=== PATIENT | female | born 1950 | race Caucasian/White ===

== ENCOUNTER → 2021-09-28 09:12 | Outpatient (BNVA) | payer MEDICARE, OTHER, SELFPAY | PROVIDERS: Family Provider Family Medicine; PCP Family Medicine; Visit Provider Internal Medicine Cardiovascular Disease | DX: Z95.0 Presence of cardiac pacemaker (principal) | CPT/HCPCS: 93280 ==

== ENCOUNTER → 2021-11-09 10:59 | Outpatient (BNVA) | payer MEDICARE, OTHER, SELFPAY | PROVIDERS: Family Provider Family Medicine; PCP Family Medicine; Visit Provider Internal Medicine Cardiovascular Disease | DX: R00.1 Bradycardia, unspecified (principal); I11.0 Hypertensive heart disease with heart failure; I50.32 Chronic diastolic (congestive) heart failure; Z95.0 Presence of cardiac pacemaker | CPT/HCPCS: 99214 ==

== ENCOUNTER → 2022-02-15 10:04 | Outpatient (BNVA) | payer MEDICARE, OTHER, SELFPAY | PROVIDERS: Family Provider Family Medicine; PCP Family Medicine; Visit Provider Internal Medicine Cardiovascular Disease | DX: Z45.010 Encounter for checking and testing of cardiac pacemaker pulse generator [battery] (principal) | CPT/HCPCS: 93280 ==

== ENCOUNTER → 2022-03-05 13:22 | Outpatient (BNVA) | payer MEDICARE, OTHER, SELFPAY | PROVIDERS: Family Provider Family Medicine; PCP Family Medicine; Visit Provider Internal Medicine | DX: M25.50 Pain in unspecified joint (principal); M79.89 Other specified soft tissue disorders; Z11.59 Encounter for screening for other viral diseases | CPT/HCPCS: 36415; 73120; 73560; 80053; 83516; 85025; 86160; 86162; 86200; 86235; 86255; 86376; 86431; 86704; 86803; 87340; 99204 ==

== ENCOUNTER → 2022-04-15 13:37 | Outpatient (BNVA) | payer MEDICARE, OTHER, SELFPAY | PROVIDERS: Family Provider Family Medicine; PCP Family Medicine; Visit Provider Internal Medicine | DX: M25.461 Effusion, right knee (principal); M79.89 Other specified soft tissue disorders; M25.50 Pain in unspecified joint | CPT/HCPCS: 20610; 99214; J3301 ==

== ENCOUNTER → 2022-05-31 10:49 | Outpatient (BNVA) | payer MEDICARE, OTHER, SELFPAY | PROVIDERS: Family Provider Family Medicine; PCP Family Medicine; Visit Provider Internal Medicine Cardiovascular Disease | DX: Z45.010 Encounter for checking and testing of cardiac pacemaker pulse generator [battery] (principal) | CPT/HCPCS: 93280 ==

== ENCOUNTER → 2022-07-16 13:33 | Outpatient (BNVA) | payer MEDICARE, OTHER, SELFPAY | PROVIDERS: Family Provider Family Medicine; PCP Family Medicine; Visit Provider Internal Medicine | DX: M25.50 Pain in unspecified joint (principal); M79.89 Other specified soft tissue disorders; I10 Essential (primary) hypertension | CPT/HCPCS: 36415; 80053; 84443; 85025; 85651; 86140; 99213 ==

== ENCOUNTER → 2022-09-13 08:41 | Outpatient (BNVA) | payer MEDICARE, OTHER, SELFPAY | PROVIDERS: Family Provider Family Medicine; PCP Family Medicine; Visit Provider Student in an Organized Health Care Education/Training Program | DX: M67.441 Ganglion, right hand (principal) | CPT/HCPCS: 99204 ==

== ENCOUNTER → 2022-11-21 14:23 | Outpatient (BNVA) | payer MEDICARE, OTHER, SELFPAY | PROVIDERS: Family Provider Family Medicine; PCP Family Medicine; Visit Provider Internal Medicine | DX: M25.50 Pain in unspecified joint (principal); E03.9 Hypothyroidism, unspecified; M79.89 Other specified soft tissue disorders | CPT/HCPCS: 99214 ==

== ENCOUNTER → 2023-01-01 14:49 | Outpatient (BNVA) | payer MEDICARE, OTHER, SELFPAY | PROVIDERS: Family Provider Family Medicine; PCP Family Medicine; Referring Provider Internal Medicine; Visit Provider Internal Medicine | DX: I10 Essential (primary) hypertension (principal); E03.9 Hypothyroidism, unspecified; L74.519 Primary focal hyperhidrosis, unspecified; R63.5 Abnormal weight gain; Z79.890 Hormone replacement therapy; Z68.35 Body mass index [BMI] 35.0-35.9, adult | CPT/HCPCS: 99204 ==

== ENCOUNTER 2023-01-10 12:11 | Outpatient (CLI) | payer MEDICARE, OTHER, SELFPAY ==
[2023-01-10 12:59] LABS: Free T4 Free Thyroxine 1.75 ng/dL (0.82-1.77); Thyroid Stimulating Hormone 1.73 uIU/mL (0.27-4.20)
== END 2023-01-10 12:12 | disposition home or self-care (01) ==
LOC: LAB 12:14
PROVIDERS: PCP Family Medicine; Visit Provider Internal Medicine
DX: I10 Essential (primary) hypertension (principal); E03.9 Hypothyroidism, unspecified; L74.519 Primary focal hyperhidrosis, unspecified; R63.5 Abnormal weight gain; R00.1 Bradycardia, unspecified; Z95.0 Presence of cardiac pacemaker; Z79.01 Long term (current) use of anticoagulants
CPT/HCPCS: 36415; 84439; 84443; 99214

== ENCOUNTER → 2023-06-10 08:52 | Outpatient (BNVA) | payer MEDICARE, OTHER, SELFPAY | PROVIDERS: PCP Family Medicine; Visit Provider Nurse Practitioner Family | DX: L57.8 Other skin changes due to chronic exposure to nonionizing radiation (principal); L74.519 Primary focal hyperhidrosis, unspecified; D22.5 Melanocytic nevi of trunk; L91.8 Other hypertrophic disorders of the skin | CPT/HCPCS: 99204 ==

== ENCOUNTER → 2023-07-11 10:08 | Outpatient (BNVA) | payer MEDICARE, OTHER, SELFPAY | PROVIDERS: PCP Family Medicine; Visit Provider Nurse Practitioner Family | DX: L74.519 Primary focal hyperhidrosis, unspecified (principal); L57.8 Other skin changes due to chronic exposure to nonionizing radiation; L81.4 Other melanin hyperpigmentation; L57.0 Actinic keratosis | CPT/HCPCS: 17000; 99214 ==

== ENCOUNTER → 2023-11-25 12:16 | Outpatient (BNVA) | payer MEDICARE, OTHER, SELFPAY | PROVIDERS: PCP Family Medicine; Visit Provider Internal Medicine | DX: I11.0 Hypertensive heart disease with heart failure (principal); I50.32 Chronic diastolic (congestive) heart failure; Z95.0 Presence of cardiac pacemaker; Z87.891 Personal history of nicotine dependence | CPT/HCPCS: 99214 ==

== ENCOUNTER 2023-12-11 08:50 | Outpatient (CLI) | payer MEDICARE, OTHER, SELFPAY ==
--- NOTE | 2023-12-11 09:30 | USCV_ITS ---
Salena Kelly Age: 73 Gender: F : 1950 Exam Date: 12/11/2023 09:05 Ordering Phys: Michael Benitez M.D ([email or web address]) Technologist: ALEC Exam Location[place] [facility] [place] Indication: SHORTNESS OF BREATH BP: 138 / 82 HR: 68 Rhythm: Sinus Technical Quality: Adequate MEASUREMENTS (Male / Female) Normal Values 2D ECHO LVOT Diameter 2.0 cm LV Ejection Fraction MOD 2C 42.0 % LV Ejection Fraction 2C AL 42.4 % LA Diameter 3.3 cm RA Systolic Volume 4C AL 22.9 ml RA Systolic Volume 4C MOD 23.5 ml LA Sys Volume AL 26.4 cm cubed LA Sys Volume Index AL 12.3 cm cubed/m squared Aorta at Sinotubular Diameter 2.5 cm IVC Diameter 1.8 cm M-MODE LA Ao Ratio MM 1.4 AV Cusp Separation MM 1.4 cm DOPPLER AV Peak Velocity 145.7 cm/s LVOT Peak Velocity 84.0 cm/s AV Area Cont Eq vti 1.8 cm squared AV Area Cont Eq pk 1.7 cm squared MV Peak Velocity 115.0 cm/s MV Area PHT 4.2 cm squared Mitral E to A Ratio 0.7 TR Peak Velocity 221.0 cm/s TR Peak Gradient 19.5 mmHg TR Mean Velocity 163.0 cm/s TR Mean Gradient 11.8 mmHg TR Velocity Time Integral 79.5 cm TV Peak E Velocity 57.0 cm/s Right Atrial Pressure 3.0 mmHg Pulmonary Artery Systolic Pressu 22.5 mmHg RV Ejection Time 0.3 s FINDINGS Left Ventricle Left ventricle is normal in size. LV systolic function is moderately reduced with EF of 35-40%. Moderate global hypokinesis. Grade 1 diastolic dysfunction. Right Ventricle Normal in size and function. Pacemaker lead is seen Right Atrium Normal in size. Pacemaker lead is seen Left Atrium Normal in size Mitral Valve Structurally normal mitral valve. Mild mitral regurgitation. Aortic Valve Grossly normal. No significant stenosis or regurgitation. Tricuspid Valve Insufficient TR jet to calculate RVSP Pulmonic Valve Trace pulmonic regurgitation. Pericardium Normal Aorta Normal in size IVC Appears to be normal CONCLUSIONS LV systolic function is moderately reduced with EF of 35-40% Grade 1 diastolic dysfunction Mild mitral regurgitation Trace pulmonic regurgitation Compared to prior echocardiogram from 2019, LV systolic function has decreased and is moderately reduced now. Michael Benitez MD (Electronically Signed) Final Date: 23 December 2023 12:22 S
== END 2023-12-11 08:51 | disposition home or self-care (01) ==
LOC: RAD 08:51
PROVIDERS: PCP Family Medicine; Visit Provider Internal Medicine
DX: R07.9 Chest pain, unspecified (principal); R06.02 Shortness of breath; I50.30 Unspecified diastolic (congestive) heart failure
CPT/HCPCS: 93306

== ENCOUNTER 2024-01-05 21:13 | Observation (INO) | payer MEDICARE, OTHER, SELFPAY ==
--- NOTE | 2024-01-05 21:15 | ECG_ITS ---
[facility] Test Date: 2024-01-05 Pat Name: Salena Kelly Department: Room: Gender: Female Twister Doffer: : 1950 Requested By: Goran Diamond Order Number: [id number] Adama MD: Marcy Dunham M.D. Measurements Intervals [place] Rate: 75 P: 19 [place]: 175 QRS: -63 QRSD: 178 T: 84 QT: 411 QTc: 459 Interpretive Statements ELECTRONIC ATRIAL PACEMAKER ELECTRONIC VENTRICULAR PACEMAKER ABNORMAL RHYTHM ECG Compared to ECG 04/20/2019 17:20:15 Sinus rhythm no longer present Right bundle-branch block no longer present Left posterior fascicular block no longer present Electronically Signed On 01-06-2024 23:42:48 CDT by Marcy Dunham M.D. [email or web address] woman[facility] [email or web address].i-nexus/store/OM/[id number]
--- NOTE | 2024-01-05 21:15 | XRR_ITS ---
PROCEDURE INFORMATION: Exam: XR Chest Exam date and time: 01/05/2024 9:30 PM Age: 73 years old Clinical indication: Pain; Other: Palpitations; Chest pressure; Prior surgery; Surgery date: 6+ months; Surgery type: Pacer; Additional info: Cp TECHNIQUE: Imaging protocol: Radiologic exam of the chest. Views: 1 view. COMPARISON: CR XR chest 1V [id number] 04/23/2019 4:11 AM FINDINGS: Tubes, catheters and devices: Cardiac pacer leads are satisfactory locations. Lungs: Unremarkable. No consolidation. Pleural spaces: Unremarkable. No pleural effusion. No pneumothorax. Heart/Mediastinum: Unremarkable. No cardiomegaly. Bones/joints: Unremarkable. XR/XR chest 1V portable [id number] IMPRESSION: No acute findings.
[2024-01-05 21:20] VITALS: BP 164/84; PULSE 79; RESP 18; TEMP 36.6; O2SAT 98
[2024-01-05 21:45] VITALS: BP 156/82; PULSE 77; RESP 21; O2SAT 97
--- NOTE | 2024-01-05 21:45 | PC.NURSE ---
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
[2024-01-05 22:00] VITALS: BP 152/82; PULSE 70; RESP 27; O2SAT 96
[2024-01-05 22:10] LABS: Basophils # 0.1 10^3/uL (0.0-0.1); Basophils % 0.9 %; Eosinophils # 0.2 10^3/uL (0.0-0.8); Eosinophils % 2.3 %; Hematocrit 40.6 % (36-47); Lymphocytes # 2.7 10^3/uL (0.8-4.8); Lymphocytes % 34.1 %; Mean Corpuscular HGB Conc 33.3 g/dL (30-55); Mean Corpuscular Hemoglobin 31.2 pg (27-33); Mean Corpuscular Volume 93.8 fl (85-98); Mean Platelet Volume 9.7 fL (7.4-10.4); Monocytes # 0.7 10^3/uL (0.2-0.9); Monocytes % 9.5 %; Neutrophils # 4.13 10^3/uL (1.8-7.7); Neutrophils % 53.1 %; Nucleated Red Blood Cells % 0 %; Platelet Count 290 10^3/cmm (157-399); Red Blood Count 4.33 10^6/uL (3.85-5.65); Red Cell Distribution Width 13.3 % (12.1-15.1); White Blood Count 7.79 10^3/uL (3.29-11.43)
--- NOTE | 2024-01-05 22:11 | ED_ITS ---
Documented by User: Goran Diamond MD 01/06/24 11:06 HPI - Arrhythmia/Palpitations 2 General: Chief Complaint: ER Hold Stated Complaint: Heart palpataions Time Seen by Provider: 01/05/24 21:43 Source: patient Mode of arrival: ambulatory Limitations: no limitations History of Present Illness: 73-year-old female states today at 830 s he started having some palpitations and checked her heart rate and states it was 125. She states that she has had some very mild dyspnea that is since resolved. Denies any chest pain she denies any fever pulse ox here is normal. Patient here appears to be functioning well. States her symptoms of symptoms resolved. Associated symptoms: Deny nausea or vomiting Review of Systems 2 Const: Denies: fever(s), chills, body aches or change in appetite Eyes: Denies: eye discomfort ENMT: Denies: throat pain or dental pain Card: Reports: palpitations; Denies: chest pain Resp: Denies: non-productive cough GI: Denies: abdominal pain, nausea, vomiting or diarrhea Musc: Denies: neck pain or back pain Skin/Breast: Denies: rash Neuro: Denies: headache(s) PFSH ED 2 PFSH: Medical History Hypothyroidism Diastolic heart failure Essential hypertension Pacemaker Social History Smoking and tobacco/nicotine status: former use of tobacco/nicotine Second hand smoke exposure: No Alcohol intake: never Substance/Drug Use: never Physical Exam 2 Const: COMMON NORMALS: no acute distress, patient oriented x3 and healthy appearing HENMT: COMMON NORMALS: normocephalic and atraumatic HEAD & SCALP: n ormocephalic and atraumatic Neck/C-Spine: COMMON NORMALS: full ROM and supple Chest: COMMONS NORMALS: normal inspection of the chest Resp: COMMON NORMALS: normal respiratory effort, No retractions, No use of accessory muscles and clear to auscultation bilaterally AUSCULTATION: clear to auscultation bilaterally Cardio: COMMON NORMALS: regular rate, regular rhythm and No murmurs present (Cardio) RATE: regular rate RHYTHM: regular rhythm Extremity: COMMON NORMALS: normal to inspection and full ROM Neuro: COMMON NORMALS: patient oriented x3, moves all extremities and no focal motor deficits Psych: COMMON NORMALS: mental status grossly normal, Normal thought process present and cooperative THOUGHT PROCESS: Normal thought process present Skin: COMMON NORMALS: no rashes or lesions noted and no wounds GENERAL SKIN EXAM: no rashes or lesions noted Course 2 Vital Signs: Vital signs: Vital Signs Temperature 97.8 F 01/06/24 09:30 Pulse Rate 68 01/06/24 09:30 Respiratory Rate 17 01/06/24 09:30 Blood Pressure 139/76 01/06/24 09:30 Pulse Oximetry 95 01/06/24 09:30 Oxygen Delivery Me thod Room Air 01/06/24 09:30 MDM - Arrhythmia/Palpitations Medical Records I reviewed the patient's medical records. Lab Data I reviewed the patient's lab results. 01/05/24 22:04 01/05/24 22:04 Radiology Impressions Chest X-Ray 01/05/24 21:15 IMPRESSION: No acute findings. Laboratory Results WBC 7.79 10^3/uL (3.29-11.43) 01/05/24 22:04 RBC 4.33 10^6/uL (3.85-5.65) 01/05/24 22:04 Hgb 13.50 g/dL (11.27-16.99) 01/05/24 22:04 Hct 40.6 % (36-47) 01/05/24 22:04 MCV 93.8 fl (85-98) 01/05/24 22:04 MCH 31.2 pg (27-33) 01/05/24 22:04 MCHC 33.3 g/dL (30-55) 01/05/24 22:04 RDW 13.3 % (12.1-15.1) 01/05/24 22:04 Plt Count 290 10^3/cmm (157-399) 01/05/24 22:04 MPV 9.7 fL (7.4-10.4) 01/05/24 22:04 Neut % (Auto) 53.1 % 01/05/24 22:04 Lymph % (Auto) 34.1 % 01/05/24 22:04 [place] % (Auto) 9.5 % 01/05/24 22:04 Eos % (Auto) 2.3 % 01/05/24 22:04 Baso % (Auto) 0.9 % 01/05/24 22:04 Neut # (Auto) 4.13 10^3/uL (1.8-7.7) 01/05/24 22:04 Lymph # (Auto) 2.7 10^3/uL (0.8-4.8) 01/05/24 22:04 [place] # (Auto) 0.7 10^3/uL (0.2-0.9) 01/05/24 22:04 Eos # (Auto) 0.2 10^3/uL (0.0-0.8) 01/05/24 22:04 Baso # (Auto) 0.1 10^3/uL (0.0-0.1) 01/05/24 22:04 Nucleated RBC % (auto) 0 % 01/05/24 22:04 Nucleated RBCs # 0.0 /100WBC 01/05/24 22:04 D-Dimer 0.57 ug/mLFEU (0-0.59) 01/05/24 22:05 Sodium 141 mmol/L (136-145) 01/05/24 22:04 Potassium 3.9 mmol/L (3.5-5.1) 01/05/24 22:04 Chloride 103 mmol/L (98-107) 01/05/24 22:04 Carbon Dioxide 25 mmol/L (22-29) 01/05/24 22:04 Anion Gap 16.9 (5-19) 01/05/24 22:04 BUN 9 mg/dL (8-23) 01/05/24 22:04 Creatinine 0.8 mg/dL (0.5-0.9) 01/05/24 22:04 GFR Calculation Not Reportable 01/05/24 22:04 Glucose 112 mg/dL (65-115) 01/05/24 22:04 Estimat Average Glucose 123 01/05/24 22:05 Hemoglobin A1c 5.9 % (4.0-6.0) 01/05/24 22:05 Calculated Osmolality 291 mOsm/kg (285-295) 01/05/24 22:04 Calcium 10.1 mg/dL (8.5-10.5) 01/05/24 22:04 Total Bilirubin 0.2 mg/dL (0.15-1.2) 01/05/24 22:04 AST 18 U/L (0-32) 01/05/24 22:04 ALT 15 U/L (0-33) 01/05/24 22:04 Alkaline Phosphatase 102 U/L (35-105) 01/05/24 22:04 Troponin T Baseline 14 ng/L (0-10) H 01/05/24 22:04 Troponin T 120 Minute 25.44 ng/L (0-10) H 01/06/24 00:36 Delta Troponin T 11.44 ABS# (0-10) H* 01/06/24 00:36 NT-Pro-B Natriuret Pep 346 pg/mL (0-125) H 01/05/24 22:04 Total Protein 7.0 g/dL (6.6-8.7) 01/05/24 22:04 Albumin 4.4 g/dL (3.5-5.2) 01/05/24 22:04 Globulin 2.6 g/dL (1.3-4.6) 01/05/24 22:04 Lipase 43 U/L (13-60) 01/05/24 22:04 XR interpretation done by ED provider, pending radiology final review ED provider radiology interpretation(s): cxr no acute abnormalities EKG Data EKG 1: I personally reviewed and interpreted this EKG as follows: EKG interpretation date: 01/05/24 EKG interpretation time: 21:15 Interpretation: pace hr [address] or t wave abnormalities qrs 178 qtc 439 Other EKG comments: Chest X-Ray 01/05/24 21:15 IMPRESSION: No acute findings. Discharge Plan Discharge Patient Disposition: Placed in Observation Admit Provider: Ana Flores Clinical Impression: Palpitations, Elevated troponin Discharge Diet: Advance as tolerated Discharge Activity: Resume usual activity Coding Level of Care Code ED Housekeeping Lead for Chg Fwd Documented by User: Drake Price DO 01/06/24 01:21 HPI - Arrhythmia/Palpitations 2 General: Chief Complaint: ER Hold Stated Complaint: Heart palpataions Time Seen by Provider: 01/05/24 21:43 [facility]SH: Medical History Hypothyroidism Diastolic heart failure Essential hypertension Pacemaker Social History Smoking and tobacco/nicotine status: former use of tobacco/nicotine Second hand smoke exposure: No Alcohol intake: never Substance/Drug Use: never Course 2 Vital Signs: Vital signs: Vital Signs Temperature 97.8 F 01/06/24 09:30 Pulse Rate 68 01/06/24 09:30 Respiratory Rate 17 01/06/24 09:30 Blood Pressure 139/76 01/06/24 09:30 Pulse Oximetry 95 01/06/24 09:30 Oxygen Delivery Me thod Room Air 01/06/24 09:30 MDM - Arrhythmia/Palpitations Medical Decision Making Care was transferred over to myself at shift change, we are waiting for the 2- hour troponin to come back in the D-dimer. D-dimer is negative, 2-hour troponin slightly positive with a delta of 11.5, upon talking to the patient she sees Dr. Mckeon and she had a echo that was abnormal and they wanted to do a angiogram on her coming up in a week or 2 patient is still chest pain-free with mild shortness of breath. Dr. Dr. Flores who agreed to place patient in observation for chest pain workup. Lab Data 01/05/24 22:04 01/05/24 22:04 Radiology Impressions Chest X-Ray 01/05/24 21:15 IMPRESSION: No acute findings. Laboratory Results WBC 7.79 10^3/uL (3.29-11.43) 01/05/24 22:04 RBC 4.33 10^6/uL (3.85-5.65) 01/05/24 22:04 Hgb 13.50 g/dL (11.27-16.99) 01/05/24 22:04 Hct 40.6 % (36-47) 01/05/24 22:04 MCV 93.8 fl (85-98) 01/05/24 22:04 MCH 31.2 pg (27-33) 01/05/24 22:04 MCHC 33.3 g/dL (30-55) 01/05/24 22:04 RDW 13.3 % (12.1-15.1) 01/05/24 22:04 Plt Count 290 10^3/cmm (157-399) 01/05/24 22:04 MPV 9.7 fL (7.4-10.4) 01/05/24 22:04 Neut % (Auto) 53.1 % 01/05/24 22:04 Lymph % (Auto) 34.1 % 01/05/24 22:04 [place] % (Auto) 9.5 % 01/05/24 22:04 Eos % (Auto) 2.3 % 01/05/24 22:04 Baso % (Auto) 0.9 % 01/05/24 22:04 Neut # (Auto) 4.13 10^3/uL (1.8-7.7) 01/05/24 22:04 Lymph # (Auto) 2.7 10^3/uL (0.8-4.8) 01/05/24 22:04 [place] # (Auto) 0.7 10^3/uL (0.2-0.9) 01/05/24 22:04 Eos # (Auto) 0.2 10^3/uL (0.0-0.8) 01/05/24 22:04 Baso # (Auto) 0.1 10^3/uL (0.0-0.1) 01/05/24 22:04 Nucleated RBC % (auto) 0 % 01/05/24 22:04 Nucleated RBCs # 0.0 /100WBC 01/05/24 22:04 D-Dimer 0.57 ug/mLFEU (0-0.59) 01/05/24 22:05 Sodium 141 mmol/L (136-145) 01/05/24 22:04 Potassium 3.9 mmol/L (3.5-5.1) 01/05/24 22:04 Chloride 103 mmol/L (98-107) 01/05/24 22:04 Carbon Dioxide 25 mmol/L (22-29) 01/05/24 22:04 Anion Gap 16.9 (5-19) 01/05/24 22:04 BUN 9 mg/dL (8-23) 01/05/24 22:04 Creatinine 0.8 mg/dL (0.5-0.9) 01/05/24 22:04 GFR Calculation Not Reportable 01/05/24 22:04 Glucose 112 mg/dL (65-115) 01/05/24 22:04 Estimat Average Glucose 123 01/05/24 22:05 Hemoglobin A1c 5.9 % (4.0-6.0) 01/05/24 22:05 Calculated Osmolality 291 mOsm/kg (285-295) 01/05/24 22:04 Calcium 10.1 mg/dL (8.5-10.5) 01/05/24 22:04 Total Bilirubin 0.2 mg/dL (0.15-1.2) 01/05/24 22:04 AST 18 U/L (0-32) 01/05/24 22:04 ALT 15 U/L (0-33) 01/05/24 22:04 Alkaline Phosphatase 102 U/L (35-105) 01/05/24 22:04 Troponin T Baseline 14 ng/L (0-10) H 01/05/24 22:04 Troponin T 120 Minute 25.44 ng/L (0-10) H 01/06/24 00:36 Delta Troponin T 11.44 ABS# (0-10) H* 01/06/24 00:36 NT-Pro-B Natriuret Pep 346 pg/mL (0-125) H 01/05/24 22:04 Total Protein 7.0 g/dL (6.6-8.7) 01/05/24 22:04 Albumin 4.4 g/dL (3.5-5.2) 01/05/24 22:04 Globulin 2.6 g/dL (1.3-4.6) 01/05/24 22:04 Lipase 43 U/L (13-60) 01/05/24 22:04 EKG Data EKG 1: Other EKG comments: Chest X-Ray 01/05/24 21:15 IMPRESSION: No acute findings. Discharge Plan Discharge Patient Disposition: Placed in Observation Admit Provider: Ana Flores Clinical Impression: Palpitations, Elevated troponin Discharge Diet: Advance as tolerated Discharge Activity: Resume usual activity Coding Level of Care Code ED Housekeeping Lead for g Liseth
[2024-01-05 22:30] VITALS: BP 136/89; PULSE 109; RESP 25; O2SAT 96
[2024-01-05 22:33] LABS: Troponin(5th) Baseline 14 ng/L (0-10)
[2024-01-05 22:42] LABS: Alanine Aminotransferase 15 U/L (0-33); Albumin Level 4.4 g/dL (3.5-5.2); Alkaline Phosphatase 102 U/L (35-105); Anion Gap 16.9 (5-19); Aspartate Amino Transferase 18 U/L (0-32); Blood Urea Nitrogen 9 mg/dL (8-23); Calcium 10.1 mg/dL (8.5-10.5); Carbon Dioxide 25 mmol/L (22-29); Chloride 103 mmol/L (98-107); Globulin 2.6 g/dL (1.3-4.6); Glucose 112 mg/dL (65-115); Lipase 43 U/L (13-60); NT Pro B Type Natriuretic Pept 346 pg/mL (0-125); Osmolality Calculated 291 mOsm/kg (285-295); Potassium 3.9 mmol/L (3.5-5.1); Sodium 141 mmol/L (136-145); Total Bilirubin 0.2 mg/dL (0.15-1.2)
[2024-01-05 23:00] VITALS: BP 151/103; PULSE 102; RESP 20; O2SAT 98
[2024-01-05 23:01] LABS: D Dimer 0.57 ug/mLFEU (0-0.59)
--- NOTE | 2024-01-05 23:15 | ECG_ITS ---
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 Measurements Intervals [place] Rate: 73 P: 50 [place]: 200 QRS: -66 QRSD: 180 T: 75 QT: 440 QTc: 487 Interpretive Statements Mostly a sensed V-paced rhythm ELECTRONIC VENTRICULAR PACEMAKER ABNORMAL RHYTHM ECG Compared to ECG 01/05/2024 21:15:00 Atrial-paced complex(es) or rhythm no longer present Electronically Signed On 01-06-2024 23:55:24 CDT by Marcy Dunham M.D. [email or web address] [email or web address] centerStoriemercy health [facility].[employer]/store/OM/[id number]
[2024-01-05] MEDS: labetalol 5 mg/mL SDV 20mL 10 MG IVP (23:23)
[2024-01-05 23:30] VITALS: BP 133/82; PULSE 80; RESP 26; O2SAT 96
[2024-01-06] VITALS (18 sets, daily range): BP systolic 113–157; BP diastolic 64–98; PULSE 63–79; RESP 16–32; TEMP 36.5–36.6; O2SAT 95–98; BMI 35.5
--- NOTE | 2024-01-06 | ECG_ITS ---
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 Interpretive Statements NAME OF STUDY: LEXISCAN SESTAMIBI STRESS TEST INDICATION: Angina, PROCEDURE: At the baseline, the EKG revealed a sensed V paced rhythm. The baseline heart was 78 bpm with a blood pressue of 144/75 mm of Hg Lexiscan was infused over a period of 20 seconds. A total of 0.4 milligrams of Lexiscan was infused. The stress phase was continued for a total of 5 minutes. Heart rate at the end of the stress phase was 84 bpm with a blood pressure 140/83 mm of Hg. The EKG at the peak infusion revealed no significant changes. Sestamibi was injected 20 seconds after the Lexiscan infusion. Heart rate at the end of the recovery phase was 75 bpm with a blood pressure of 144/82 mm of Hg. CONCLUSION: 1. The EKG response to Lexiscan infusion is uninterpretable due to baseline changes 2. No LexiScan induced chest pain or cardiac arrhythmia 3. Normal blood pressure and heart rate response 4. Sestamibi/sestamibi perfusion scan pending; see separate report. Electronically Signed On 01-10-2024 14:27:54 CDT by Marcy Dunham M.D. [id number]
[2024-01-06 01:03] LABS: Troponin 5 2HR 25.44 ng/L (0-10)
[2024-01-06 01:04] LABS: Troponin 5 2HR Delta 11.44 ABS# (0-10)
--- NOTE | 2024-01-06 02:32 | PM.HP ---
Providers/Chief Complaint Admitting Physician: Ana Flores MD Primary Care Provider: Nitish Amador MD Chief Complaint: Heart palpataions History of Present Illness Salena Kelly is a 73 year old female with a past medical history of having a pacemaker for symptomatic sinus bradycardia, who has been experiencing increasing shortness of breath the past several weeks. Patient states she has been feeling short of breath for about 3 weeks now. The exertional when she attempts to walk. She has noticed this with shorter distances recently. Recently followed up with cardiology as an outpatient was recommended to undergo an echocardiogram which showed LV systolic function is moderately reduced with EF of 35-40%. Moderate global hypokinesis. Grade 1 diastolic dysfunction. She presented to the ER today with chief complaints of chest discomfort which is located in the middle of the chest. Also had palpitations and subjective dyspnea at the time. Reports that her heart rate at home was at 125/min. She was at rest at that time. Upon presenting to the ER heart rate had improved to 75/min. EKG shows paced rhythm. She was found to have elevated troponin in the 20s range with a positive delta at 2 hours and recommended to stay for further diagnostics. Review of Systems General: Reports: 10 or more systems reviewed and unremarkable except in HPI and below Const: Denies: fever(s), chills or body aches Eyes: Denies: change in vision, blurry vision or photophobia ENMT: Reports: hoarseness; Denies: throat pain, enlarged tonsils, odynophagia or nasal congestion Card: Denies: chest pain, palpitations, irregular heart rhythm, edema, swelling of feet/ankles, lightheadedness, pre-syncope, dyspnea on exertion or orthopnea Resp: Denies: dyspnea, productive cough, non-productive cough, wheezing, stridor, pain on inspiration, change in phlegm color, hemoptysis or chest congestion GI: Denies: abdominal pain, nausea, vomiting, hematemesis, coffee ground emesis, dysphagia, heartburn, diarrhea, constipation, GI cramping, change in stool character, hematochezia or melena : Denies: flank pain, difficulty voiding, dysuria, urinary frequency, urinary urgency, urinary hesitancy or hematuria Musc: Denies: neck pain, back pain, extremity pain, joint swelling, joint warmth or deformity Neuro: Denies: headache(s), numbness in extremities, weakness in extremities, sensory changes, difficulty walking, frequent falls, dizziness, vertigo, behavioral changes, Slurred speech present or seizure-like activity Psych: Denies: anxiety, depression, suicidal ideation or homicidal ideation Endo: Denies: polyuria, polydipsia, tired all the time, cold intolerance or hot flashes [place]/Lymph: Denies: easy bruising or easy bleeding Medications/Allergies Home Medications Medication Instructions Recorded Confirmed Last Taken Type cholecalciferol (vitamin D3) 75 75 mcg PO DAILY 05/12/20 11/25/23 Unknown History mcg (3,000 unit) tablet cyanocobalamin (vitamin B-12) 500 500 mcg PO DAILY 05/12/20 11/25/23 Unknown History mcg tablet (B-12 DOTS) zinc acetate 50 mg (zinc) capsule 50 mg PO DAILY 05/12/20 11/25/23 Unknown History (Galzin) ascorbic acid (vitamin C) 500 mg 500 mg PO DAILY 02/09/21 11/25/23 Unknown History tablet coenzyme Q10 50 mg capsule (Co 50 mg PO DAILY 02/09/21 11/25/23 Unknown History Q-10) levothyroxine 125 mcg capsule 112 mcg PO DAILY 02/09/21 11/25/23 Unknown History multivitamin 1 tab PO DAILY 02/09/21 11/25/23 Unknown History meloxicam 15 mg tablet 15 mg PO DAILY #30 tabs 11/21/22 11/25/23 Unknown Rx Allergies Allergy/AdvReac Type Severity Reaction Status Date / Time No Known Allergies Allergy Verified 01/05/24 21:27 PFSH Acute PFSH: Medical History Hypothyroidism Diastolic heart failure Essential hypertension Pacemaker Social History Smoking and tobacco/nicotine status: former use of tobacco/nicotine Second hand smoke exposure: No Alcohol intake: never Substance/Drug Use: never Vitals/I&O/Wt Last Vital Signs Temp 97.9 F 01/05/24 21:20 Pulse 80 01/05/24 23:30 Resp 26 H 01/05/24 23:30 BP 133/82 01/05/24 23:30 Pulse Ox 96 06/24/24 23:30 O2 Del Method Room Air 01/05/24 22:30 Weight last 48 hrs Weight 95.254 kg Physical Exam Narrative: General: No acute distress, AO x3 HEENT: PERRLA, pupils bilaterally equal and reactive, pallors not present Chest: Normal vesicular breath sounds, no added sounds, equal good air entry bilaterally CVS: S1-S2 regular, no murmurs, no tachycardia, no gallops, no rubs Abdomen: Soft, nontender, no organomegaly, bowel sounds present Neuro: No focal deficits, no facial deformity, AO x3, power 5/5 in all limbs Data 01/05/24 22:04 01/05/24 22:04 Other Labs: Trop 14---> 25 with delta 11--> 24.7 delta 10.7 Ordering Provider/Ordering MD: Goran Diamond MD Date of Service: 01/06/24 Procedure(s): ECG 12 lead EKG Accession Number(s): [id number] Report Number: [id number] [facility] Test Date: 2024-01-06 Pat Name: Salena Kelly Department: Room: Gender: Female 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 A&P Assessment and plan (1) Dyspnea on exertion: (2) Chest pain: Plan 73-year-old lady with a history of pacemaker in the past presenting today with chief complaints of palpitations, vague chest discomfort and dyspnea on exertion over the past 3 weeks. Recent outpatient echocardiogram with low EF of 35 to 40% with global hypokinesis Troponin trend today mildly elevated at 24, delta of 11 at 2 hours, 10 at 6 hours. Patient reports having had tachycardia at home, however presenting to the ER has had a paced rhythm at with heart rate in the 70s. Admit in observation to med.surg with tele Ordered for lexiscan stress test in am cardiology consult given drop in EF over previous in 2019, cardiomyopathy of unclear cause at this time. ASA 325 mg x 1 followed by ASA 81mg po daily Check lipid panel and Hba1c Continue levothyroxine 112mcg daily low probability of PE given negative D dimer DVT ppx: SCD Full code Attestations Medical Necessity Statement*: less than 2 midnight stay is anticipated at this time. Coding Level of Care Code Acute Code for Chg Fwd Moderate MDM includes number and complexity of problems actively addressed during encounter, amount and/or complexity of data reviewed/ordered and described risk of complication, morbidity or mortality of management as documented Diagnoses Dyspnea on exertion R06.09 Chest pain R07.9
--- NOTE | 2024-01-06 03:42 | ECG_ITS ---
[facility] Test Date: 2024-01-06 Pat Name: Salena Kelly Department: Room: EDIP Gender: Female Supervisor Channel Process: : 1950 Requested By: Goran Diamond Order Number: [id number] Adama MD: Marcy Dunham M.D. Measurements Intervals [place] Rate: 75 P: 48 [place]: 196 QRS: -66 QRSD: 188 T: 74 QT: 449 QTc: 504 Interpretive Statements ELECTRONIC VENTRICULAR PACEMAKER ABNORMAL RHYTHM ECG Compared to ECG 01/06/2024 01:06:19 No significant changes Electronically Signed On 01-06-2024 23:55:43 CDT by Marcy Dunham M.D. [email or web address] [email or web address] [facility] southDoodle Mobile/store/OM/[id number]
[2024-01-06 03:58] LABS: Chol HDL Ratio 2.76 mg/dL (0.0-4.40); Cholesterol 160 mg/dL (0-200); HDL Cholesterol 58 mg/dL (60-100); LDL Cholesterol Calculated 77 mg/dL (50-129); LDL HDL Ratio 1.33 RATIO (0.00-3.22); Triglycerides 123 mg/dL (0-150)
--- NOTE | 2024-01-06 04:22 | NMCV_ITS ---
NM evgeny perf SPECT r/s* [id number] Salena Kelly Age: 73 Gender: F : 1950 Exam Date: 01/06/2024 06:38 Ordering Phys: Ana Flores MD Technologist: ISRAEL Jimenez Exam Location: [facility] Indications: SOB STRESS TEST Please see separate stress test report in [facility] for full findings IMAGE PROTOCOL Rest/Stress 1 Lexiscan Day Radiopharmaceutical Dose (mCi) Administration Site Administered by Rest: Tc-99m 10.6 IV ISRAEL Jimenez Sestamibi Stress:Tc-99m 32.9 IV ISRAEL Jimenez Sestamibi Rest: 06-Jan-2024 60 Discovery 630 Stress: 06-Jan-2024 30 Discovery 630 0.4mg Lexiscan. Supine position only as patient was unable to lay prone. SPECT RESULTS Technical Quality: Good Raw Data Analysis: Breast attenuation Image Corrections: No attenuation or motion correction applied Summed Stress Score: 1 Summed Rest Score: 9 Summed Difference Score: 0 PERFUSION FINDINGS Small to moderate area of minimal to moderately decreased tracer uptake was noted in all the apical segments. No significant reversibility was noted in these regions. FUNCTIONAL RESULTS (calculated via Gated SPECT) Stress Image LV EF (%): 58 Stress EDV (mL):103 TID: 0.91 Stress ESV (mL):43 FUNCTIONAL FINDINGS: Segmental wall motion analysis revealed moderate hypokinesia of the LV apex IMPRESSIONS 1. Myocardial perfusion imaging revealing small to moderate area of minimal to moderately decreased persistent tracer uptake in the apical region suggesting myocardial scarring versus attenuation artifact 2. Normal LV ejection fraction 58%. 3. LV wall motion analysis revealed a moderate hypokinesia of the LV apex. 4. Near normal LV volume. Low probability for coronary ischemia, based on the above findings Dr Marcy Dunham MD FACC (Electronically Signed) Final Date: 06 January 2024 09:17 S
[2024-01-06 04:43] LABS: Estmated Average Glucose 123; Hemoglobin A1C 5.9 % (4.0-6.0)
[2024-01-06 05:22] LABS: Thyroid Stimulating Hormone 1.59 uIU/mL (0.27-4.20)
--- NOTE | 2024-01-06 07:12 | P.CONIM_ITS ---
Providers/Reason For Consult 2 Consulting Physician/Specialty*: CHRIST Dunham MD/Cardiology Reason for Consult*: Patient with chest pain, tachycardia, abnormal echocardiogram Requesting Physician: Dr Sydni Flores Attending Physician: Ana Flores MD Primary Care Provider: Nitish Amador MD History of Present Illness History of Present Illness Salena Kelly is a 73 year old female With a history of hypertension, diastolic heart failure, hypothyroidism and permanent pacer implantation, presenting with complaints of chest pain and palpitation and shortness of breath. This patient had a permanent pacer implantation in 2019. Apparently she has been doing okay up until a month ago when she started having shortness of breath. She had an echocardiogram which revealed ejection fraction of 35 to 40%. Last evening, she started having palpitations with a heart rate in the 115 to 125 range. She has not been doing anything in particular that time. She felt some tightness and heaviness in the chest with the palpitation. No other associated symptoms. No dizziness or syncopal episodes. Her shortness of breath has been mostly exertional. Did not have any swelling in the extremities. No orthopnea PND. No fever, chills or cough. She has no previous history of coronary coronary disease or myocardial infarction. She has a history of diastolic heart failure. She is known to have hypothyroidism and is on thyroid replacement Patient has no significant family history for atherosclerotic heart diseas or premature heart disease. She denies any smoking abuse, alcohol abuse or any substance abuse. Review of Systems 2 Narrative: CONSTITUTIONAL: No fever or chills. EYES: No blurring of vision or other visual disturbances lately. ENT: No hoarseness of voice, auditory disturbances or sore throat. CARDIOVASCULAR: As mentioned above. RESPIRATORY: Shortness of breath as mentioned above. GASTROINTESTINAL: No hematemesis or melena. GENITOURINARY: No dysuria or hematuria. INTEGUMENTARY: No skin rashes or history of skin cancer. NEURO: No transient ischemic attacks or amaurosis. PSYCHIATRIC: No history of psychosis or major depression. HEMATOLOGIC: No bleeding disorders or significant anemia. ENDOCRINE: No history of polyuria or polydipsia. MUSCULOSKELETAL: No recent joint pain or swelling. ALLERGY/IMMUNOLOGY: As mentioned above. Medications/Allergies Home Medications Medication Instructions Recorded Confirmed Last Taken Type cholecalciferol (vitamin D3) 75 75 mcg PO DAILY 05/12/20 01/06/24 01/05/24 History mcg (3,000 unit) tablet cyanocobalamin (vitamin B-12) 500 500 mcg PO DAILY 05/12/20 01/06/24 01/05/24 History mcg tablet (B-12 DOTS) zinc acetate 50 mg (zinc) capsule 50 mg PO DAILY 05/12/20 01/06/24 01/05/24 History (Galzin) ascorbic acid (vitamin C) 500 mg 500 mg PO DAILY 02/09/21 01/06/24 01/05/24 History tablet levothyroxine 125 mcg capsule 150 mcg PO DAILY 02/09/21 01/06/24 01/05/24 History multivitamin 1 tab PO DAILY 02/09/21 01/06/24 01/05/24 History meloxicam 15 mg tablet 15 mg PO DAILY #30 tabs 11/21/22 01/06/24 01/05/24 Rx Allergies Allergy/AdvReac Type Severity Reaction Status Date / Time No Known Allergies Allergy Verified 01/05/24 21:27 PFSH Acute 2 PFSH: Medical History Hypothyroidism Diastolic heart failure Essential hypertension Pacemaker Social History Smoking and tobacco/nicotine status: former use of tobacco/nicotine Second hand smoke exposure: No Alcohol intake: never Substance/Drug Use: never Vitals/I&O/Wt Last Vital Signs Temp 97.8 F 01/06/24 05:39 Pulse 78 01/06/24 06:28 Resp 18 01/06/24 05:39 BP 148/83 01/06/24 05:39 Pulse Ox 98 01/06/24 05:39 O2 Del Method Room Air 01/06/24 05:35 Weight last 48 hrs Weight 207 lb Weight 207 lb Weight 210 lb Physical Exam 2 Narrative: GENERAL: The patient is alert and oriented times three. Not in any acute distress. HEENT: No significant pallor, icterus or lymphadenopathy.Oral cavity: There are no mucous membrane lesions. NECK: Trachea appears to be central. No masses noted. No JVD or thyromegaly appreciated. RESPIRATORY: Chest is symmetrical. No intercostals muscle retraction or any accessory muscle activation. There is no chest wall tenderness. Breath sounds are heard bilaterally. No rales or rhonchi heard. No evidence of any consolidation. BREASTS: Deferred. HEART: The heart sounds are normal. No S3 or S4. Short systolic murmur in the lower sternal border. No diastolic murmurs. No pericardial rub ABDOMEN: No vessel pulsations or distention. No tenderness. No organomegaly appreciated. Bowel sounds are normally heard. : Deferred. RECTAL: Deferred. LYMPHATIC: No lymphadenopathy noted in the neck. EXTREMITIES: No edema or cyanosis. No clubbing. MUSCULOSKELETAL: No acute joint deformities or swelling SKIN: There are no significant rashes or ecchymosis NEUROPSYCHIATRIC: The patient is alert and oriented x3. Appears to be in a good mood. No tremors or rigidity noted. Data 01/05/24 22:04 01/05/24 22:04 Other Labs: Laboratory Last Values WBC 7.79 10^3/uL (3.29-11.43) 01/05/24 22:04 RBC 4.33 10^6/uL (3.85-5.65) 01/05/24 22:04 Hgb 13.50 g/dL (11.27-16.99) 01/05/24 22:04 Hct 40.6 % (36-47) 01/05/24 22:04 MCV 93.8 fl (85-98) 01/05/24 22:04 MCH 31.2 pg (27-33) 01/05/24 22:04 MCHC 33.3 g/dL (30-55) 01/05/24 22:04 RDW 13.3 % (12.1-15.1) 01/05/24 22:04 Plt Count 290 10^3/cmm (157-399) 01/05/24 22:04 MPV 9.7 fL (7.4-10.4) 01/05/24 22:04 Neut % (Auto) 53.1 % 01/05/24 22:04 Lymph % (Auto) 34.1 % 01/05/24 22:04 [place] % (Auto) 9.5 % 01/05/24 22:04 Eos % (Auto) 2.3 % 01/05/24 22:04 Baso % (Auto) 0.9 % 01/05/24 22:04 Neut # (Auto) 4.13 10^3/uL (1.8-7.7) 01/05/24 22:04 Lymph # (Auto) 2.7 10^3/uL (0.8-4.8) 01/05/24 22:04 [place] # (Auto) 0.7 10^3/uL (0.2-0.9) 01/05/24 22:04 Eos # (Auto) 0.2 10^3/uL (0.0-0.8) 01/05/24 22:04 Baso # (Auto) 0.1 10^3/uL (0.0-0.1) 01/05/24 22:04 Nucleated RBC % (auto) 0 % 01/05/24 22:04 Nucleated RBCs # 0.0 /100WBC 01/05/24 22:04 D-Dimer 0.57 ug/mLFEU (0-0.59) 01/05/24 22:05 Sodium 141 mmol/L (136-145) 01/05/24 22:04 Potassium 3.9 mmol/L (3.5-5.1) 01/05/24 22:04 Chloride 103 mmol/L (98-107) 01/05/24 22:04 Carbon Dioxide 25 mmol/L (22-29) 01/05/24 22:04 Anion Gap 16.9 (5-19) 01/05/24 22:04 BUN 9 mg/dL (8-23) 01/05/24 22:04 Creatinine 0.8 mg/dL (0.5-0.9) 01/05/24 22:04 GFR Calculation Not Reportable 01/05/24 22:04 Glucose 112 mg/dL (65-115) 01/05/24 22:04 Estimat Average Glucose 123 01/05/24 22:05 Hemoglobin A1c 5.9 % (4.0-6.0) 01/05/24 22:05 Calculated Osmolality 291 mOsm/kg (285-295) 01/05/24 22:04 Calcium 10.1 mg/dL (8.5-10.5) 01/05/24 22:04 Total Bilirubin 0.2 mg/dL (0.15-1.2) 01/05/24 22:04 AST 18 U/L (0-32) 01/05/24 22:04 ALT 15 U/L (0-33) 01/05/24 22:04 Alkaline Phosphatase 102 U/L (35-105) 01/05/24 22:04 Troponin T Baseline 14 ng/L (0-10) H 01/05/24 22:04 Troponin T 120 Minute 25.44 ng/L (0-10) H 01/06/24 00:36 Delta Troponin T 11.44 ABS# (0-10) H* 01/06/24 00:36 Troponin T Hi Sens 6Hr 24.70 ng/L (0-10) H 01/06/24 03:30 Troponin T Hi Sens 6Hr Delta 10.70 ng/L (0-12) 01/06/24 03:30 NT-Pro-B Natriuret Pep 346 pg/mL (0-125) H 01/05/24 22:04 Total Protein 7.0 g/dL (6.6-8.7) 01/05/24 22:04 Albumin 4.4 g/dL (3.5-5.2) 01/05/24 22:04 Globulin 2.6 g/dL (1.3-4.6) 01/05/24 22:04 Triglycerides 123 mg/dL (0-150) 01/06/24 03:30 Cholesterol 160 mg/dL (0-200) 01/06/24 03:30 LDL Cholesterol, Calc 77 mg/dL (50-129) 01/06/24 03:30 HDL Cholesterol 58 mg/dL (60-100) L 01/06/24 03:30 LDL/HDL Ratio 1.33 RATIO (0.00-3.22) 01/06/24 03:30 Cholesterol/HDL Ratio 2.76 mg/dL (0.0-4.40) 01/06/24 03:30 Lipase 43 U/L (13-60) 01/05/24 22:04 TSH 1.59 uIU/mL (0.27-4.20) 01/06/24 03:30 EKG 1: My Interpretation: The EKG showed 100% a sensed V paced rhythm. Father reported she is not possible Other data: The Myocardial perfusion imaging on 01/06/2024 1. Myocardial perfusion imaging revealing small to moderate area of minimal to moderately decreased persistent tracer uptake in the apical region suggesting myocardial scarring versus attenuation artifact 2. Normal LV ejection fraction 58%. 3. LV wall motion analysis revealed a moderate hypokinesia of the LV apex. 4. Near normal LV volume. Low probability for coronary ischemia, based on the above findings A&P Assessment and plan (1) Dyspnea on exertion: Most likely from the LV dysfunction and heart failure. Patient may be carefully treated with IV diuretics. (2) Elevated troponin: Most likely related to type II NM. Patient had a Myocardial perfusion imaging this morning. She was found to have no evidence of any ischemia. The tachyarrhythmia also could be contributing factor for the elevated troponin T. (3) Palpitations: The patient seems to have some form of benign tachyarrhythmia. I am interrogate the pacemaker to further evaluate. We also will watch closely on the monitor. (4) Acute on chronic systolic heart failure: I will start the patient on Entresto 24/26 1 tablet p.o. twice daily. She will be closely monitored on telemetry. (5) Pacemaker: Patient interrogation today to further evaluate the arrhythmia. May continue on the current management. (6) Essential hypertension: Will try to optimize the antihypertensive medications. Plan Patient be started on Entresto 24/26 1 tablet p.o. twice daily Spironolactone 25 mg p.o. daily Lasix as needed Based on the clinical progress, further recommendations will be made. Thank for the opportunity to eval this patient make these recommendations Consult Attestations 2 Medical Necessity Statement: Patient requires continued hospital stay for close monitoring and further management Coding Level of Care Code 75612 Diagnoses Dyspnea on exertion R06.09 Elevated troponin R79.89 Palpitations R00.2 Acute on chronic systolic heart failure I50.23 Pacemaker Z95.0 Essential hypertension I10
[2024-01-06] MEDS: regadenoson 0.4 Mg/5 ml Syringe IVP (07:18)
[2024-01-06] MEDS: pantoprazole DR 40 mg Tablet PO (09:13)
[2024-01-06] MEDS: aspirin 81 mg EC Tablet PO (09:13)
[2024-01-06] MEDS: FUROsemide 10 mg/mL SDV 2mL 20 MG IVP (10:58)
[2024-01-06] MEDS: spironolactone 25 mg Tablet PO (11:04)
[2024-01-06] MEDS: potassium chloride ER 20 mEq Tablet PO (11:05)
[2024-01-06] MEDS: levothyroxine 150 mcg Tablet PO (12:43)
--- NOTE | 2024-01-06 17:14 | P.PN_ITS ---
Subjective 2 Subjective: She reports she is feeling better this morning. Denies chest pain or pressure. No trouble breathing. No lightheadedness. She has discussed with cardiology regarding cardiomyopathy, results of stress test, further plans. Vitals/I&O/Wt Last Vital Signs Temp 97.7 F 01/06/24 16:23 Pulse 68 01/06/24 16:23 Resp 20 H 01/06/24 16:23 BP 132/75 01/06/24 16:23 Pulse Ox 96 01/06/24 16:23 O2 Del Method Room Air 01/06/24 11:44 Weight last 48 hrs Weight 93.894 kg Weight 93.894 kg Weight 95.254 kg Physical Exam 2 Narrative: Sitting up in bed, having lunch. Accompanied by a family member. Const: COMMON NORMALS: patient oriented x3 and alert GENERAL APPEARANCE: c ooperative ORIENTATION/CONSCIOUSNESS: Yes awake HENMT: COMMON NORMALS: oropharynx normal Neck/C-Spine: COMMON NORMALS: no JVD Resp: COMMON NORMALS: normal respiratory effort and clear to auscultation bilaterally AUSCULTATION: clear to auscultation bilaterally Cardio: COMMON NORMALS: no JVD, regular rhythm, S1 normal heart sound present, S2 normal heart sound present and No murmurs present (Cardio) RHYTHM: regular rhythm HEART SOUNDS: S1 normal heart sound present and S2 normal heart sound present GI: COMMON NORMALS: Normal to inspection, nondistended, normoactive bowel sounds present, Soft to palpation and non-tender PALPATION: Yes Soft to palpation Extremity: COMMON NORMALS: no joint enlargement and no pedal edema Neuro: COMMON NORMALS: patient oriented x3 and moves all extremities S ENSORIUM/ORIENTATION: Yes alert Skin: COMMON NORMALS: no rashes or lesions noted GENERAL SKIN EXAM: no rashes or lesions noted Data 01/05/24 22:04 01/05/24 22:04 A&P Assessment and plan (1) Dyspnea on exertion: (2) Chest pain: Plan 73-year-old lady with a history of pacemaker in the past presenting today with chief complaints of palpitations, vague chest discomfort and dyspnea on exertion over the past 3 weeks. Chest pain: Has resolved. Troponin with mild elevation positive delta from 14 up to 25. 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 Without active ischemia, is noted to have an area of small to moderate size with mild to moderate persistent tracer uptake decreased suggestive of scarring. Discussed with patient and her family. Reviewed cardiology note. Continue aspirin, add statin. Would stop and avoid meloxicam. Cardiomyopathy: Unknown cause of cardiomyopathy. No active ischemia. As per discussion with cardiology suspected nonischemic cardiomyopathy. Discussed with patient and family, discussed risk of decompensation of CHF, additional CHF complications, she knows to seek medical attention in case of any signs of decompensation or other complications. Reviewed vitals, CBC D-dimer, CMP, troponin series, TSH, stress test. Reviewed A1c. Spironolactone, Entresto have been added. Lasix as needed. Reassess chemistry, kidney function Arrhythmia: As per discussion with cardiology monitor on telemetry. Pacemaker interrogation. Continue levothyroxine 112mcg daily low probability of PE given negative D dimer DVT ppx: SCD Full code Attestations 2 Medical Necessity Statement*: Requiring admission for assessment management of chest pain, assessment of arrhythmia, optimization of new cardiomyopathy with low ejection fraction. and High MDM includes amount and/or complexity of data reviewed/ordered [ resulted lab(s)/test(s), ordered lab(s)/test(s) and other healthcare professional discussion] as documented Diagnoses Dyspnea on exertion R06.09 Chest pain R07.9
[2024-01-06] MEDS: sacubitril/valsartan 24-26 mg Tablet 1 EACH PO (17:55)
[2024-01-06] MEDS: atorvastatin 40 mg Tablet PO (21:34)
[2024-01-07] VITALS (7 sets, daily range): BP systolic 107–121; BP diastolic 73–79; PULSE 67–82; RESP 16–18; TEMP 36.6–37.2; O2SAT 96
[2024-01-07 05:51] LABS: Basophils # 0.1 10^3/uL (0.0-0.1); Basophils % 0.7 %; Eosinophils # 0.2 10^3/uL (0.0-0.8); Eosinophils % 2.6 %; Hematocrit 40.8 % (36-47); Lymphocytes # 2.3 10^3/uL (0.8-4.8); Lymphocytes % 31.2 %; Mean Corpuscular HGB Conc 33.3 g/dL (30-55); Mean Corpuscular Hemoglobin 31.9 pg (27-33); Mean Corpuscular Volume 95.6 fl (85-98); Mean Platelet Volume 9.9 fL (7.4-10.4); Monocytes # 0.7 10^3/uL (0.2-0.9); Monocytes % 9.1 %; Neutrophils # 4.16 10^3/uL (1.8-7.7); Neutrophils % 56.3 %; Nucleated Red Blood Cells % 0 %; Platelet Count 282 10^3/cmm (157-399); Red Blood Count 4.27 10^6/uL (3.85-5.65); Red Cell Distribution Width 13.6 % (12.1-15.1); White Blood Count 7.38 10^3/uL (3.29-11.43)
[2024-01-07] MEDS: levothyroxine 150 mcg Tablet PO (05:54)
[2024-01-07 06:20] LABS: Alanine Aminotransferase 15 U/L (0-33); Albumin Level 4.1 g/dL (3.5-5.2); Alkaline Phosphatase 100 U/L (35-105); Anion Gap 15.9 (5-19); Aspartate Amino Transferase 21 U/L (0-32); Blood Urea Nitrogen 10 mg/dL (8-23); Calcium 10.1 mg/dL (8.5-10.5); Carbon Dioxide 28 mmol/L (22-29); Chloride 102 mmol/L (98-107); Globulin 3.1 g/dL (1.3-4.6); Glucose 130 mg/dL (65-115); Magnesium 1.9 mg/dL (1.7-2.3); Osmolality Calculated 293 mOsm/kg (285-295); Potassium 4.9 mmol/L (3.5-5.1); Sodium 141 mmol/L (136-145); Total Bilirubin 0.6 mg/dL (0.15-1.2); Total Protein 7.2 g/dL (6.6-8.7)
[2024-01-07] MEDS: spironolactone 25 mg Tablet PO (08:43)
[2024-01-07] MEDS: sacubitril/valsartan 24-26 mg Tablet 1 EACH PO (08:43)
[2024-01-07] MEDS: pantoprazole DR 40 mg Tablet PO (08:43)
[2024-01-07] MEDS: aspirin 81 mg EC Tablet PO (08:43)
--- NOTE | 2024-01-07 09:09 | P.PN_ITS ---
Subjective 2 Subjective: Patient seems to be feeling better. Shortness of breath has improved. No chest pain. No new arrhythmias Medications: Medication Review Details: Current Medications Acetaminophen (Acetaminophen 325 Mg Tablet) 650 mg PO Q6H PRN PRN Reason: Mild/Mod Pain Or Temp >/= 101 Aspirin (Aspirin 81 Mg Ec Tablet) 81 mg PO DAILY [facility] Last Admin: 01/07/24 08:43 Dose: 81 mg Atorvastatin Calcium (Atorvastatin 40 Mg Tablet) 40 mg PO BEDTIME [facility] Last Admin: 01/06/24 21:34 Dose: 40 mg Levothyroxine Sodium (Levothyroxine 150 Mcg Tablet) 150 mcg PO QAM [facility] Last Admin: 01/07/24 05:54 Dose: 150 mcg Morphine Sulfate (Morphine 4 Mg/Ml Sdv 1 Ml) 2 mg IVP Q4H PRN PRN Reason: SEVERE PAIN Naloxone HCl (Naloxone 0.4 Mg/Ml Sdv) 0.1 mg IVP Q2M PRN PRN Reason: OPIATERV Ondansetron HCl (Ondansetron 2 Mg/Ml Sdv 2 Ml) 4 mg IVP Q8H PRN PRN Reason: vomiting, or N/V if npo Ondansetron HCl (Ondansetron 2 Mg/Ml Sdv 2 Ml) 4 mg IVP Q2M PRN PRN Reason: NAUSEA Pantoprazole Sodium (Pantoprazole Dr 40 Mg Tablet) 40 mg PO DAILY [facility] Last Admin: 01/07/24 08:43 Dose: 40 mg Sacubitril/Valsartan (Sacubitril/Valsartan 24-26 Mg Tablet) 1 each PO BID [facility] Last Admin: 01/07/24 08:43 Dose: 1 each Spironolactone (Spironolactone 25 Mg Tablet) 25 mg PO DAILY [facility] Last Admin: 01/07/24 08:43 Dose: 25 mg Vitals/I&O/Wt Last Vital Signs Temp 97.8 F 01/07/24 08:00 Pulse 76 01/07/24 08:00 Resp 18 01/07/24 08:00 BP 121/74 01/07/24 08:00 Pulse Ox 96 01/07/24 08:00 O2 Del Method Room Air 01/07/24 08:00 Weight last 48 hrs Weight 209 lb 5 oz Weight 207 lb Weight 207 lb Weight 210 lb Physical Exam 2 Narrative: GENERAL: The patient is alert and oriented times three. Not in any acute distress. HEENT: No significant pallor, icterus or lymphadenopathy.Oral cavity: There are no mucous membrane lesions. NECK: Trachea appears to be central. No masses noted. No JVD or thyromegaly appreciated. RESPIRATORY: Chest is symmetrical. No intercostals muscle retraction or any accessory muscle activation. There is no chest wall tenderness. Breath sounds are heard bilaterally. No rales or rhonchi heard. No evidence of any consolidation. BREASTS: Deferred. HEART: The heart sounds are normal. No S3 or S4. Short systolic murmur in the lower sternal border. No diastolic murmurs. No pericardial rub ABDOMEN: No vessel pulsations or distention. No tenderness. No organomegaly appreciated. Bowel sounds are normally heard. : Deferred. RECTAL: Deferred. LYMPHATIC: No lymphadenopathy noted in the neck. EXTREMITIES: No edema or cyanosis. No clubbing. MUSCULOSKELETAL: No acute joint deformities or swelling SKIN: There are no significant rashes or ecchymosis NEUROPSYCHIATRIC: The patient is alert and oriented x3. Appears to be in a good mood. No tremors or rigidity noted. Data 01/07/24 05:40 01/07/24 05:40 Other Labs: Laboratory Last Values WBC 7.38 10^3/uL (3.29-11.43) 01/07/24 05:40 RBC 4.27 10^6/uL (3.85-5.65) 01/07/24 05:40 Hgb 13.60 g/dL (11.27-16.99) 01/07/24 05:40 Hct 40.8 % (36-47) 01/07/24 05:40 MCV 95.6 fl (85-98) 01/07/24 05:40 MCH 31.9 pg (27-33) 01/07/24 05:40 MCHC 33.3 g/dL (30-55) 01/07/24 05:40 RDW 13.6 % (12.1-15.1) 01/07/24 05:40 Plt Count 282 10^3/cmm (157-399) 01/07/24 05:40 MPV 9.9 fL (7.4-10.4) 01/07/24 05:40 Neut % (Auto) 56.3 % 01/07/24 05:40 Lymph % (Auto) 31.2 % 01/07/24 05:40 [place] % (Auto) 9.1 % 01/07/24 05:40 Eos % (Auto) 2.6 % 01/07/24 05:40 Baso % (Auto) 0.7 % 01/07/24 05:40 Neut # (Auto) 4.16 10^3/uL (1.8-7.7) 01/07/24 05:40 Lymph # (Auto) 2.3 10^3/uL (0.8-4.8) 01/07/24 05:40 [place] # (Auto) 0.7 10^3/uL (0.2-0.9) 01/07/24 05:40 Eos # (Auto) 0.2 10^3/uL (0.0-0.8) 01/07/24 05:40 Baso # (Auto) 0.1 10^3/uL (0.0-0.1) 01/07/24 05:40 Nucleated RBC % (auto) 0 % 01/07/24 05:40 Nucleated RBCs # 0.0 /100WBC 01/07/24 05:40 D-Dimer 0.57 ug/mLFEU (0-0.59) 01/05/24 22:05 Sodium 141 mmol/L (136-145) 01/07/24 05:40 Potassium 4.9 mmol/L (3.5-5.1) 01/07/24 05:40 Chloride 102 mmol/L (98-107) 01/07/24 05:40 Carbon Dioxide 28 mmol/L (22-29) 01/07/24 05:40 Anion Gap 15.9 (5-19) 01/07/24 05:40 BUN 10 mg/dL (8-23) 01/07/24 05:40 Creatinine 0.9 mg/dL (0.5-0.9) 01/07/24 05:40 GFR Calculation Not Reportable 01/07/24 05:40 Glucose 130 mg/dL (65-115) H 01/07/24 05:40 Estimat Average Glucose 123 01/05/24 22:05 Hemoglobin A1c 5.9 % (4.0-6.0) 01/05/24 22:05 Calculated Osmolality 293 mOsm/kg (285-295) 01/07/24 05:40 Calcium 10.1 mg/dL (8.5-10.5) 01/07/24 05:40 Magnesium 1.9 mg/dL (1.7-2.3) 01/07/24 05:40 Total Bilirubin 0.6 mg/dL (0.15-1.2) 01/07/24 05:40 AST 21 U/L (0-32) 01/07/24 05:40 ALT 15 U/L (0-33) 01/07/24 05:40 Alkaline Phosphatase 100 U/L (35-105) 01/07/24 05:40 Troponin T Baseline 14 ng/L (0-10) H 01/05/24 22:04 Troponin T 120 Minute 25.44 ng/L (0-10) H 01/06/24 00:36 Delta Troponin T 11.44 ABS# (0-10) H* 01/06/24 00:36 Troponin T Hi Sens 6Hr 24.70 ng/L (0-10) H 01/06/24 03:30 Troponin T Hi Sens 6Hr Delta 10.70 ng/L (0-12) 01/06/24 03:30 NT-Pro-B Natriuret Pep 346 pg/mL (0-125) H 01/05/24 22:04 Total Protein 7.2 g/dL (6.6-8.7) 01/07/24 05:40 Albumin 4.1 g/dL (3.5-5.2) 01/07/24 05:40 Globulin 3.1 g/dL (1.3-4.6) 01/07/24 05:40 Triglycerides 123 mg/dL (0-150) 01/06/24 03:30 Cholesterol 160 mg/dL (0-200) 01/06/24 03:30 LDL Cholesterol, Calc 77 mg/dL (50-129) 01/06/24 03:30 HDL Cholesterol 58 mg/dL (60-100) L 01/06/24 03:30 LDL/HDL Ratio 1.33 RATIO (0.00-3.22) 01/06/24 03:30 Cholesterol/HDL Ratio 2.76 mg/dL (0.0-4.40) 01/06/24 03:30 Lipase 43 U/L (13-60) 01/05/24 22:04 TSH 1.59 uIU/mL (0.27-4.20) 01/06/24 03:30 A&P Assessment and plan (1) Dyspnea on exertion: Most likely from the LV dysfunction and heart failure. Patient may be carefully treated with IV diuretics. Patient seems to be responding to the medication. (2) Elevated troponin: Most likely related to type II NC. Patient had a Myocardial perfusion imaging this morning. She was found to have no evidence of any ischemia. The tachyarrhythmia also could be contributing factor for the elevated troponin T. (3) Palpitations: The patient seems to have some form of benign tachyarrhythmia. Pacemaker interrogation today (4) Acute on chronic systolic heart failure: I will start the patient on Entresto 1 tablet p.o. twice daily. She will be closely monitored on telemetry. The patient seems to be tolerating the medication so far well. Does need to be gradually advanced. (5) Pacemaker: Patient interrogation today to further evaluate the arrhythmia. May continue on the current management. (6) Essential hypertension: Will try to optimize the antihypertensive medications. Plan The dose of the Entresto may be gradually advanced to the maximum dose as outpatient. Continue on the other medications as it is. Attestations 2 Medical Necessity Statement*: Deferred to the primary Coding Level of Care Code Acute Code for Chg Fwd Diagnoses Dyspnea on exertion R06.09 Elevated troponin R79.89 Palpitations R00.2 Acute on chronic systolic heart failure I50.23 Pacemaker Z95.0 Essential hypertension I10
--- NOTE | 2024-01-07 09:38 | PM.DCS ---
Discharge Providers Date of Admission: 01/06/24 01:32 Date of Discharge: January 07, 2024 Attending Provider at Admission: Ana Flores MD Attending Provider at Discharge: Klaus Cruz Primary Care Provider: Nitish Amador MD Diagnoses at Discharge Discharge Diagnosis (1) Dyspnea on exertion: Status: Acute (2) Elevated troponin: Status: Acute (3) Palpitations: Status: Acute (4) Acute on chronic systolic heart failure: Status: Acute (5) Pacemaker: Status: Acute (6) Essential hypertension: Status: Acute Reason for Visit Reason for Visit: Heart palpataions Hospital Course Hospital Course 73-year-old lady with history of pacemaker implantation with symptomatic bradycardia presented after having heart palpitations, dyspnea on exertion, easy fatigability, echocardiogram for admission showed EF decreased down to 35 to 40% with moderate global hypokinesia, grade 1 diastolic function. In ER with chest discomfort, centrally located, with mild troponin elevation in the 20s. She underwent additional assessment by cardiology, assessed by stress testing which showed area of old persistent decreased tracer uptake suspected scarring but without active ischemia. Pacemaker was interrogated did not show any arrhythmia. She was started on Entresto, spironolactone. Her symptoms have improved. With prior ME possible with scarring on stress testing she started on aspirin, statin. She is asked to discontinue meloxicam and avoid NSAIDs due to associated cardiovascular risks. She is asked to follow-up with cardiology in office for additional assessment of suspected nonischemic cardiomyopathy and will need reassessment echocardiogram in 3 months. We have extensively discussed with her risks of comorbidities, including congestive heart failure decompensation, and other associated with cardiomyopathy, she is prescribed Lasix as needed. She knows to look out for signs of heart failure, and we also went over diet, sodium and fluid restriction. She knows to seek medical attention in case of worsening or new concerning symptoms. Physical Exam Const: COMMON NORMALS: patient oriented x3 and alert GENERAL APPEARANCE: cooperative ORIENTATION/CONSCIOUSNESS: Yes awake HENMT: COMMON NORMALS: oropharynx normal Neck/C-Spine: COMMON NORMALS: no JVD Resp: COMMON NORMALS: normal respiratory effort and clear to auscultation bilaterally AUSCULTATION: clear to auscultation bilaterally Cardio: COMMON NORMALS: no JVD, regular rhythm, S1 normal heart sound present, S2 normal heart sound present and No murmurs present (Cardio) RHYTHM: regular rhythm HEART SOUNDS: S1 normal heart sound present and S2 normal heart sound present GI: COMMON NORMALS: Normal to inspection, nondistended, normoactive bowel sounds present, Soft to palpation and non-tender PALPATION: Yes Soft to palpation Extremity: COMMON NORMALS: no joint enlargement and no pedal edema Neuro: COMMON NORMALS: patient oriented x3 and moves all extremities SENSORIUM/ORIENTATION: Yes alert Skin: COMMON NORMALS: no rashes or lesions noted GENERAL SKIN EXAM: no rashes or lesions noted Discharge Data Studies Completed and Pending Completed Studies During Hospitalization Category Date Time Status Cardiac Stress Test MIBI [Sestamibi Stress Test Request Exams 01/06/24 04:21 Draft ] Routine XR chest 1V portable [id number] Stat Exams 01/05/24 21:15 Completed NM evgeny perf SPECT r/s* [id number] Routine Nuc Med 01/06/24 04:22 Completed Radiology Impressions Chest X-Ray 01/05/24 21:15 IMPRESSION: No acute findings. Laboratory Results WBC 7.38 10^3/uL (3.29-11.43) 01/07/24 05:40 RBC 4.27 10^6/uL (3.85-5.65) 01/07/24 05:40 Hgb 13.60 g/dL (11.27-16.99) 01/07/24 05:40 Hct 40.8 % (36-47) 01/07/24 05:40 MCV 95.6 fl (85-98) 01/07/24 05:40 MCH 31.9 pg (27-33) 01/07/24 05:40 MCHC 33.3 g/dL (30-55) 01/07/24 05:40 RDW 13.6 % (12.1-15.1) 01/07/24 05:40 Plt Count 282 10^3/cmm (157-399) 01/07/24 05:40 MPV 9.9 fL (7.4-10.4) 01/07/24 05:40 Neut % (Auto) 56.3 % 01/07/24 05:40 Lymph % (Auto) 31.2 % 01/07/24 05:40 [place] % (Auto) 9.1 % 01/07/24 05:40 Eos % (Auto) 2.6 % 01/07/24 05:40 Baso % (Auto) 0.7 % 01/07/24 05:40 Neut # (Auto) 4.16 10^3/uL (1.8-7.7) 01/07/24 05:40 Lymph # (Auto) 2.3 10^3/uL (0.8-4.8) 01/07/24 05:40 [place] # (Auto) 0.7 10^3/uL (0.2-0.9) 01/07/24 05:40 Eos # (Auto) 0.2 10^3/uL (0.0-0.8) 01/07/24 05:40 Baso # (Auto) 0.1 10^3/uL (0.0-0.1) 01/07/24 05:40 Nucleated RBC % (auto) 0 % 01/07/24 05:40 Nucleated RBCs # 0.0 /100WBC 01/07/24 05:40 D-Dimer 0.57 ug/mLFEU (0-0.59) 01/05/24 22:05 Sodium 141 mmol/L (136-145) 01/07/24 05:40 Potassium 4.9 mmol/L (3.5-5.1) 01/07/24 05:40 Chloride 102 mmol/L (98-107) 01/07/24 05:40 Carbon Dioxide 28 mmol/L (22-29) 01/07/24 05:40 Anion Gap 15.9 (5-19) 01/07/24 05:40 BUN 10 mg/dL (8-23) 01/07/24 05:40 Creatinine 0.9 mg/dL (0.5-0.9) 01/07/24 05:40 GFR Calculation Not Reportable 01/07/24 05:40 Glucose 130 mg/dL (65-115) H 01/07/24 05:40 Estimat Average Glucose 123 01/05/24 22:05 Hemoglobin A1c 5.9 % (4.0-6.0) 01/05/24 22:05 Calculated Osmolality 293 mOsm/kg (285-295) 01/07/24 05:40 Calcium 10.1 mg/dL (8.5-10.5) 01/07/24 05:40 Magnesium 1.9 mg/dL (1.7-2.3) 01/07/24 05:40 Total Bilirubin 0.6 mg/dL (0.15-1.2) 01/07/24 05:40 AST 21 U/L (0-32) 01/07/24 05:40 ALT 15 U/L (0-33) 01/07/24 05:40 Alkaline Phosphatase 100 U/L (35-105) 01/07/24 05:40 Troponin T Baseline 14 ng/L (0-10) H 01/05/24 22:04 Troponin T 120 Minute 25.44 ng/L (0-10) H 01/06/24 00:36 Delta Troponin T 11.44 ABS# (0-10) H* 01/06/24 00:36 Troponin T Hi Sens 6Hr 24.70 ng/L (0-10) H 01/06/24 03:30 Troponin T Hi Sens 6Hr Delta 10.70 ng/L (0-12) 01/06/24 03:30 NT-Pro-B Natriuret Pep 346 pg/mL (0-125) H 01/05/24 22:04 Total Protein 7.2 g/dL (6.6-8.7) 01/07/24 05:40 Albumin 4.1 g/dL (3.5-5.2) 01/07/24 05:40 Globulin 3.1 g/dL (1.3-4.6) 01/07/24 05:40 Triglycerides 123 mg/dL (0-150) 01/06/24 03:30 Cholesterol 160 mg/dL (0-200) 01/06/24 03:30 LDL Cholesterol, Calc 77 mg/dL (50-129) 01/06/24 03:30 HDL Cholesterol 58 mg/dL (60-100) L 01/06/24 03:30 LDL/HDL Ratio 1.33 RATIO (0.00-3.22) 01/06/24 03:30 Cholesterol/HDL Ratio 2.76 mg/dL (0.0-4.40) 01/06/24 03:30 Lipase 43 U/L (13-60) 01/05/24 22:04 TSH 1.59 uIU/mL (0.27-4.20) 01/06/24 03:30 Vitals Last Vital Signs Temp 97.8 F 01/07/24 08:00 Pulse 76 01/07/24 08:00 Resp 18 01/07/24 08:00 BP 121/74 01/07/24 08:00 Pulse Ox 96 01/07/24 08:00 O2 Del Method Room Air 01/07/24 08:00 Discharge Plan Discharge Patient Disposition: Home Condition: Stable Prescriptions: New aspirin 81 mg Tablet,Delayed Release (Dr/Ec) 81 mg PO DAILY Qty: 90 0RF spironolactone 25 mg Tablet 25 mg PO DAILY Qty: 90 0RF Entresto 24-26 mg Tablet 1 tab PO BID Qty: 90 0RF atorvastatin 40 mg Tablet 40 mg PO BEDTIME Qty: 90 0RF Lasix 40 mg tablet 40 mg PO DAILY PRN (Reason: edema) Qty: 30 2RF Continued multivitamin Tablet 1 tab PO DAILY ascorbic acid (vitamin C) 500 mg tablet 500 mg PO DAILY cyanocobalamin (vitamin B-12) [B-12 DOTS] 500 mcg tablet 500 mcg PO DAILY Galzin 50 mg (zinc) capsule 50 mg PO DAILY Rx Instructions: swallow whole; do not chew/break/dissolve/open cholecalciferol (vitamin D3) 75 mcg (3,000 unit) tablet 75 mcg PO DAILY levothyroxine 125 mcg capsule 150 mcg PO DAILY Discontinued meloxicam 15 mg tablet 15 mg PO DAILY Qty: 30 2RF Discharge Orders: Discharge Order (Routine); Ordered 01/07/24 Ordered By: Klaus Cruz Referrals: Marcy Dunham MD [Physician] - 02/03/24 2:30 pm () Nitish Amador MD [Primary Care Provider] - 01/13/24 9:30 am Discharge Diet: Cardiac Discharge Activity: Resume usual activity Patient Instructions: Spironolactone (By mouth), Furosemide (By mouth), Aspirin (By mouth), Atorvastatin (By mouth), Sacubitril/Valsartan (By mouth) (Entresto), Heart Failure (GEN), Heart Palpitations (ED), Dilated Cardiomyopathy (GEN) Activity Restrictions/Additional Instructions: Follow-up with your primary provider and cardiology for reassessment of cardiomyopathy, weakening of your heart. Monitor for any symptoms as discussed due to risk of developing decompensated congestive heart failure, continue cardiac diet. Avoid excess salt, limit to less than 2000 mg if possible, avoid excess fluids/water. In case of developing swelling in her legs, getting out of breath when laying flat or walking, or gaining more than 3 pounds in 2 days, take diuretic (Lasix). Seek medical attention in case of any worsening or new concerning symptoms. Discharge Attestations Time Spent in Discharge Care*: greater than 30 min Quality Metrics Clinical Quality Measures [ No reported AMI, CVA or VTE this stay] Coding Level of Care Code 56029 Total time (in minutes) for Discharge: 55 Diagnoses Dyspnea on exertion R06.09 Elevated troponin R79.89 Palpitations R00.2 Acute on chronic systolic heart failure I50.23 Pacemaker Z95.0 Essential hypertension I10
== END 2024-01-07 15:20 | disposition home or self-care (01) ==
LOC: ER 01-06 01:20 → ER IP 01-06 02:22 → MEDSURG 01-06 04:56
PROVIDERS: Admitting Provider Student in an Organized Health Care Education/Training Program; Emergency Provider Emergency Medicine; PCP Family Medicine; Visit Provider Internal Medicine
DX: R06.09 Other forms of dyspnea (principal); R79.89 Other specified abnormal findings of blood chemistry; R00.2 Palpitations; I11.0 Hypertensive heart disease with heart failure; I50.23 Acute on chronic systolic (congestive) heart failure; Z95.0 Presence of cardiac pacemaker; E03.9 Hypothyroidism, unspecified; Z87.891 Personal history of nicotine dependence
CPT/HCPCS: 36415; 71045; 78452; 80053; 80061; 83036; 83690; 83735; 83880; 84443; 84484; 85025; 85378; 93005; 93017; 96374; 96375; 99285; A9500; G0378; J1940; J2785; J3490

== ENCOUNTER 2024-01-19 06:01 | Outpatient (CLI) | payer MEDICARE, OTHER, SELFPAY ==
[2024-01-19] VITALS (18 sets, daily range): BP systolic 91–159; BP diastolic 53–88; PULSE 61–86; RESP 14–22; TEMP 37; O2SAT 96–99; BMI 35.9
--- NOTE | 2024-01-19 06:00 | XACV_ITS ---
Exam Room: 2 Ht: 163 cm Wt: 95 kg BSA: 2.11 m2 Gender: Female : 1950 Any Known Allergies: No known allergies Exam Priority: Routine Procedure(s): Procedure Description: Diagnostic procedure Procedure Description: Left Heart Catheterization Procedure Description: Right Heart Catheterization Procedure Description: Left ventriculography Procedure Description: O2 saturation Procedure Description: Coronary Angiography Diagnostic Cath Status: Elective Diagnostic Findings * INDICATION: 73-year-old woman with past medical history of hypertension was recently found to have a low LV systolic function. She was recently admitted to hospital with CHF exacerbation. She had a planned right and left heart cath for better assessment of volume status and ruling out CAD. * Right heart cath: Normal right and left sided cardiac pressures. * No disease noted in the Left Main, Left Anterior Descending, Right, or Circumflex coronary arteries. * Coronary angiography shows left dominance. Conclusions 1. Normal right and left sided cardiac pressures. 2. No disease noted in the Left Main, Left Anterior Descending, Right, or Circumflex coronary arteries. 3. Mild left ventricular systolic dysfunction. Ejection fraction of 40%. Recommendations * Guideline directed heart failure therapy. * Outpatient cardiology follow up in 4 weeks. Interventional RX Recommendation: medical therapy and/or counseling Diagnostic RX Recommendation: medical therapy and/or counseling Anticoagulation: Heparin Ventriculography Ejection Fraction: 40.0 % Pressures Phase:Rest AO : 90 / 62 ( 75 ) @ 8:49:00 AM 88 / 61 ( 74 ) @ 8:49:00 AM 117 / 62 ( 86 ) @ 8:57:00 AM 115 / 61 ( 85 ) @ 8:57:00 AM LV : 117 / 0 / 13 @ 8:56:00 AM 121 / 1 / 16 @ 8:57:00 AM 120 / 0 / 15 @ 8:57:00 AM RV : 33 / 2 / 9 @ 8:42:00 AM PA : 31 / 14 ( 19 ) @ 8:41:00 AM RA : a wave = 9 v wave = 8 mean = 6 @ 8:42:00 AM PCW : a wave = 16 v wave = 13 mean = 12 @ 8:40:00 AM O2 Content Phase:Rest PA : O2 Content O2: 73.1 @ 8:49:00 AM Saturations Phase:Rest AO : 96 @ 8:49:00 AM PA : 73 @ 8:49:00 AM Cardiac Output Phase:Rest Aneudy : 4 @ 8:07:42 AM Aneudy Cardiac Index: 2 @ 8:07:42 AM Flow Phase:Rest Qp : 4 @ 8:07:42 AM Qs : 4 @ 8:07:42 AM Valves Phase:DefaultPhase AV : 1.0 @ 8:07:42 AM 1.0 @ 8:07:42 AM AV Mean Gradient: 0.0 @ 8:07:42 AM 0.0 @ 8:07:42 AM AV Flow: 227 @ 8:07:42 AM Clinical Evaluation EBL: 5mL-10mL Procedural Details Procedure Consent Obtained. Pre-Procedure Time Out. Identified patient by full name and date of as verbalized by the patient/guarantor. Does the consent match the physician's order: Yes. Accurate & Complete Informed Consent: Yes. Inpatient/Outpatient History & Physical on Chart: Yes. If H&P is completed, is and addenduem needed: No; If yes, is the addendum complete: N/A. Visualize and Verify Site with Patient/Guarantor: N/A. Relevant Radiology Images available: Yes. Pre-op teaching completed and patient verbalized understanding. The risks, benefits, and alternatives of sedation and/or procedure were discussed by physician. The patient agrees to continue. Procedure started. Physician arrived. [place] Clinical Fraility Score: 3: Managing Well. Histology Teacher Indications: LV Dysfunction. Chest Pain Symptom Assessment: Non-anginal Chest Pain. Correct patient, site and procedure confirmed by cath team. PERRLA. Strong, equal hand color dipper bilaterally. Lungs clear x 5 lobes. IV Site on Arrival: 20 gauge in the left hand. IV Site on Arrival: 18 gauge in the right anticubital. IV Fluids: 0.9% NaCl at KVO. 0 mL infused prior to laboratory scientist. Pre Procedural Pulses: bilateral posterior tibial was Doppled. Pre Procedural Pulses: bilateral dorsalis pedis was 2+. Pre Procedural Pulses: bilateral radial was 2+. right groin was prepped with chloroprep then draped in the usual sterile fashion. right radial was prepped with chloroprep then draped in the usual sterile fashion. Baseline sample Acquired. HR: 70 BPM. Physician scrubbed in. Immediate Pre-Procedure Time Out. Correct Patient: Yes; Correct Procedure: Yes; Correct Site: Yes; Correct Patient Position: Yes; Correct Supplies: Yes; Dried Flammable Prep: Yes; Blood Products Available: N/A;. Lidocaine 1% infiltrated to the right brachial. Sheath wire inserted through the right brachial IV catheter. IV catheter removed OTW. [place] MON catheter inserted. [place] wire inserted. Wire out. Oximetry samples were obtained. Normal venous range: 60-85%. Normal arterial range: 95-100%. Pressure measurements obtained. [place] out. Lidocaine 1% infiltrated to the right radial. Arterial access obtained. ABG drawn and sent with respiratory therapy. Oxygen started at 2liters/min via nasal canula. A 5 [place] TIG catheter in over wire. Multiple views taken of left coronary artery. Catheter redirected to the RCA. Catheter removed over the exchange wire. A 5 [place] JR4 catheter in over wire. Multiple views taken of right coronary artery. Catheter removed over the exchange wire. A 5 [place]ian Angled Pig catheter in over wire. EDP Sample taken: LV 117/-1,13; HR: 77 BPM; SpO2: 98%. LV gram performed in [place] @ 10 mL/second for a total of 30 mL. EDP Sample taken: LV 121/1,16; HR: 79 BPM; SpO2: 99%. Pullback taken: LV 120/0,15; AO 117/62(86); Mean: 0mmHg, Peak to Peak: 1mmHg, SEP: 19sec/min; HR: 78 BPM; SpO2: 98%. Catheter removed over the exchange wire. A TR Band was successful obtaining hemostatsis at the Right Radial artery insertion site. A Manual Compression was successful obtaining hemostatsis at the Right Brachial Vein insertion site. Vital chart was stopped. Post Procedure: Pulses reassessed and unchanged. PERRLA. Strong, equal hand color dipper bilaterally. No VTE prophylaxis required. Medication's Wasted: Lidocaine 1% = 16 mL. Total IV fluids: 46 mL. Medication's Wasted: Nitro = 49.8 mcg. Medication's Wasted: Other = Fentanyl 50mcg Versed 1 mg. Post-op diagnosis: Normal Coronaries. Complications: None. Estimated blood loss: 5mL-10mL. Responsiveness - Normal response to verbal stimuli; alert and oriented, PERRLA. Airway - Unaffected, no intervention required; spontaneous ventilation. Circulation: W/N/L, pulses unchanged. Nausea/Vomiting: No. Procedure completed. Patient transferred by wheelchair to CPRU. Access Site Site: Right Brachial Vein Sheath Size: 6 Fr Hemostasis Method: Manual Compression Hemostasis Success: Successful Site: Right Radial artery Sheath Size: 6 Fr Hemostasis Method: TR Band Hemostasis Success: Successful Procedure Medications Start: 7:24 AM Stop: 7:24 AM Medication: Versed Amount: 0.5 mg Route: I.V. Start: 7:24 AM Stop: 7:24 AM Medication: Fentanyl Amount: 25 mcg Route: I.V. Start: 7:45 AM Stop: 7:45 AM Medication: Versed Amount: 0.5 mg Route: I.V. Start: 7:47 AM Stop: 7:47 AM Medication: Fentanyl Amount: 25 mcg Route: I.V. Start: 7:47 AM Stop: 7:47 AM Medication: Heparin Amount: 5000 units Route: I.V. I, the attending physician, have reviewed and verified all procedure medications. Yes, all medications given per verbal order History/Risk Factors Hypertension: Yes Dyslipidemia: No Peripheral Arterial Disease (PAD): No Myocardial Infarction (VT): No Obesity: Yes Renal Disease: No Tobacco Use: Former Prior Interventions PCI: No CABG: No Valve Surgery: No Report Signatures Finalized by Michael Benitez MD on 02/02/2024 10:49 AM
[2024-01-19] MEDS: diphenhydrAMINE 50 mg Capsule PO (06:30)
[2024-01-19] MEDS: aspirin 325 mg Tablet PO (06:30)
--- NOTE | 2024-01-19 07:29 | W.PM.OPSFHP ---
Same Day Surgery H&P Indication for Procedure/HPI DATE OF PROCEDURE: January 19, 2024 CHIEF COMPLAINT/INDICATIONFOR SURGICAL PROCEDURE: LV dysfunction/shortness of breath PREOP DIAGNOSIS: LV dysfunction/shortness of breath PLANNED PROCEDURE: Operation Date: 01/19/24 07:00 Proposed Procedures p Cardiac Catheterization 82379, I50.32(Bilateral) - Michael Benitez M.D 73-year-old woman with past medical history of hypertension was recently found to have a low LV systolic function. She was recently admitted to hospital with CHF exacerbation. She had a planned right and left heart cath for better assessment of volume status and ruling out CAD. Medications/Allergies* Home Medications Medication Instructions Recorded Confirmed Type cholecalciferol (vitamin D3) 75 75 mcg PO DAILY 05/12/20 01/16/24 History mcg (3,000 unit) tablet cyanocobalamin (vitamin B-12) 500 500 mcg PO DAILY 05/12/20 01/16/24 History mcg tablet (B-12 DOTS) zinc acetate 50 mg (zinc) capsule 50 mg PO DAILY 05/12/20 01/16/24 History (Galzin) ascorbic acid (vitamin C) 500 mg 500 mg PO DAILY 02/09/21 01/16/24 History tablet levothyroxine 125 mcg capsule 150 mcg PO DAILY 02/09/21 01/16/24 History multivitamin 1 tab PO DAILY 02/09/21 01/16/24 History Allergies/Adverse Reactions Allergy/AdvReac Type Severity Reaction Status Date / Time No Known Allergies Allergy Verified 01/19/24 07:20 Current Medications: Generic Name Dose Route Start Last Admin Trade Name Freq PRN Reason Stop Dose Admin Sodium Chloride 1,000 mls @ 50 mls/hr 01/19/24 06:00 01/19/24 06:58 Sodium Chloride 0.9% IV 01/20/24 01:59 Not Given .Q20H ONE Pertinent History/Comorbid Conditions* Medical History (Updated 01/08/24 @ 00:01 by ELIOT Rushing) Hypothyroidism Diastolic heart failure Essential hypertension Pacemaker Social History Smoking and tobacco/nicotine status: former use of tobacco/nicotine Second hand smoke exposure: No Alcohol intake: never Substance/Drug Use: never Pertinent Exam Findings alert, oriented x 3, clear to auscultation bilaterally and regular rate & rhythm Conscious Sedation Assessment PATIENT ASSESSED PRIOR TO SEDATION, WITH NO CHANGE NOTED: Yes AIRWAY EVAL/ANESTHESIA PLAN: normal airway, ASA III, Local Anesthesia, Risks, benefits & alternatives of sedation and/or procedure discussed and Patient agrees to continue as planned ADDITIONAL INFORMATION: Moderate sedation Recommendations Surgery/Procedure today (Left heart cath/right heart cath with possible percutaneous coronary intervention. ) Coding Level of Care Code Acute Code for [facility] Fwd
--- NOTE | 2024-01-19 08:10 | SUR.PHASEII ---
POST CATH NOTE Received patient from lab support tech. Status post right and left cardiac cath. Condition- stable. Radial and brachil access sites- hemostatic. See pcs for assessment details. Vitals stable. Call light in reach. No pain reported at this time. IV- 0.9% NS at 100 ml/hr post cath until discharge as verbal order from Dr Benitez. Informed to call for needs.
--- NOTE | 2024-01-19 08:34 | SUR.PHASEII ---
IV USED INTRAOPERATIVELY- REMOVED POST PROCEDURE. COMPRESSION BAND AT SITE POST PROCEDURE.
[2024-01-19 09:01] LABS: Arterial Blood Gas Hematocrit 38.3 % (37-47); Blood Gas Operator Identificat WALCI; Carboxyhemoglobin 1.2 %THgb (0.4-20.1); HGB O2 Sat 94.5 % (95-100); Methemoglobin 0.7 % (0.4-1.5); Total Hemoglobin 12.5 g/dL (12-16)
[2024-01-19 09:02] LABS: Blood Gas Sample Site AO; Blood Gas Sample Type Not specified; Oxygen Device ROOM AIR
[2024-01-19 09:03] LABS: Arterial Blood Gas Hematocrit 40.9 % (37-47); Blood Gas Operator Identificat WALCI; Blood Gas Sample Site PA; Blood Gas Sample Type Not specified; Carboxyhemoglobin 1.4 %THgb (0.4-20.1); HGB O2 Sat 71.8 % (95-100); Methemoglobin 0.3 % (0.4-1.5); Oxygen Device ROOM AIR; Total Hemoglobin 13.4 g/dL (12-16)
--- NOTE | 2024-01-19 10:15 | SUR.PHASEII ---
TR BAND removed. Site hemostatic. Brachial bandage removed- site hemostatic.
== END 2024-01-19 12:30 | disposition home or self-care (01) ==
PROVIDERS: PCP Family Medicine; Visit Provider Internal Medicine
DX: I50.32 Chronic diastolic (congestive) heart failure (principal); E03.9 Hypothyroidism, unspecified; I10 Essential (primary) hypertension; Z95.0 Presence of cardiac pacemaker; Z87.891 Personal history of nicotine dependence; E66.9 Obesity, unspecified; Z68.35 Body mass index [BMI] 35.0-35.9, adult
CPT/HCPCS: 36415; 82810; 93460; 96374; 96375; 99152; 99153; C1751; C1769; C1887; C1894; J1644; J2250; J3010; J3490; J7030; Q0163; Q9967

== ENCOUNTER 2024-01-28 18:43 | Emergency (ER) | payer MEDICARE, SELFPAY ==
[2024-01-28 18:59] VITALS: BP 124/83; PULSE 104; RESP 16; TEMP 36.9; O2SAT 93
--- NOTE | 2024-01-28 20:28 | XRR_ITS ---
PROCEDURE INFORMATION: Exam: XR Chest Exam date and time: 01/28/2024 9:42 PM Age: 73 years old Clinical indication: Dyspnea TECHNIQUE: Imaging protocol: Radiologic exam of the chest. Views: 1 view. COMPARISON: CR (CHEST, ) 01/05/2024 9:30 PM FINDINGS: Lungs: Unremarkable. No consolidation. Pleural spaces: Unremarkable. No pleural effusion. No pneumothorax. Heart/Mediastinum: Borderline cardiac silhouette size. No mediastinal widening. Dual lead cardiac pacer is stable. Diaphragm: Mild elevation of the right hemidiaphragm is stable. Bones/joints: Unremarkable. XR/XR chest 1V portable [id number] IMPRESSION: 1. No clear-cut acute plain radiographic cardiopulmonary abnormality or interval change from 01/05/2024. 2. Stable borderline cardiac silhouette size without overt CHF. Other chronic findings detailed above.
--- NOTE | 2024-01-28 20:28 | XRR_ITS ---
PROCEDURE INFORMATION: Exam: XR Right Foot Exam date and time: 01/28/2024 9:42 PM Age: 73 years old Clinical indication: Pain; Foot; Right TECHNIQUE: Imaging protocol: Radiologic exam of the right foot. Views: 3 or more views. COMPARISON: CR XR knee RT 1-2V [id number] 03/05/2022 3:28 PM FINDINGS: Bones/joints: Mild pes cavus. Mild metatarsus adductus. Mild hallux valgus. Moderate flexion deformity of the 3rd and 4th toes. Diffuse osteopenia. Mild arthrosis of the TMT, 1st MTP and interphalangeal joints. Moderate plantar and posterior calcaneal spurring. Soft tissues: Normal. XR/XR foot RT min 3V* [id number] IMPRESSION: No acute fracture or dislocation. Alignment deformities and mild degenerative changes detailed above.
--- NOTE | 2024-01-28 20:29 | W.ED.NAVMDI ---
HPI - Nausea/Vomiting/Diarrhea General: Chief complaint: Nausea/Vomiting/Diarrhea Stated complaint: n/v Right leg, cant walk Time Seen by Provider: 01/28/24 20:09 History of Present Illness: 73-year-old female comes in today with nausea and vomiting for the last 3 days. Patient reports that she is also had a increase in her right ankle and foot pain. Patient 2 weeks ago has been taking off her usual arthritis medication for interference with her medications for her heart and blood pressure. There was also concern that maybe her kidneys were being affected by it. Patient reports has been unable to tolerate the pain at this time. Now for the last 3 days patient's had some nausea and vomiting every time she eats. Patient does have her gallbladder and denies any abdominal surgeries. Patient does not believe the pain is what is causing her nausea and vomiting is whenever she eats or drinks anything. Patient appears nontoxic. Patient appears in mild pain. Associated nausea: Yes Associated symtoms: Reports nausea Review of Systems General: Reports: 10 or more systems reviewed and unremarkable except in HPI and below GI: Reports: nausea and vomiting [facility] ED PFSH: Medical History Hypothyroidism Diastolic heart failure Essential hypertension Pacemaker Social History Smoking and tobacco/nicotine status: former use of tobacco/nicotine Second hand smoke exposure: No Alcohol intake: never Substance/Drug Use: never Physical Exam Const: COMMON NORMALS: alert HENMT: COMMON NORMALS: normocephalic HEAD & SCALP: normocephalic Neck/C-Spine: COMMON NORMALS: full ROM Chest: COMMONS NORMALS: normal inspection of the chest Resp: COMMON NORMALS: normal respiratory effort and clear to auscultation bilaterally AUSCULTATION: clear to auscultation bilaterally Cardio: COMMON NORMALS: regular rate and regular rhythm RATE: regular rate RHYTHM: regular rhythm GI: COMMON NORMALS: Soft to palpation PALPATION: Yes Soft to palpation and Yes Tenderness to palpation present (GI) (Generalized) : COMMON NORMALS: Yes no CVA tenderness BLADDER/KIDNEY EXAM: Yes no CVA tenderness Back/Pelvis: COMMON NORMALS: no CVA tenderness Extremity: COMMON NORMALS: no pedal edema Neuro: SENSORIUM/ORIENTATION: Yes alert Skin: COMMON NORMALS: turgor normal GENERAL SKIN EXAM: turgor normal Course Vital Signs: Vital signs: Vital Signs Temperature 98.4 F 01/28/24 18:59 Pulse Rate 87 01/28/24 22:50 Respiratory Rate 18 01/28/24 22:50 Blood Pressure 123/75 01/28/24 22:50 Pulse Oximetry 95 01/28/24 22:50 Oxygen Delivery Me thod Room Air 01/28/24 22:00 MDM - Nausea/Vomiting/Diarrhea Medical Decision Making Patient comes in today for complaints of nausea and vomiting every time she eats. Patient appears nontoxic. Patient reports pain whenever she eats probably nausea vomiting that relieves her pain. Patient appears nontoxic. Abdomen soft with some mild epigastric tenderness. No CVA tenderness. No edema. Patient also reports some pain to the right ankle and foot due to arthritis. Patient does not believe the pain in her foot is causing her nausea and vomiting. Differential diagnosis includes but not limited to gallbladder disease, pancreatitis, bowel obstruction, gastroenteritis, gastritis, ACS, adverse drug effect, chronic kidney disease. CBC was unremarkable. CMP had a sodium of 132. Troponin was 15. CRP was 5.3. BNP was 191. Chest x-ray was unremarkable. X-ray of the foot noted degeneration/osteoarthritis ankle. Ultrasound of the gallbladder was unremarkable. Reviewed exam with patient with recommendation for treatment for mild dehydration. Patient was given some fluids along with Zofran and pantoprazole. Believe patient probably has some gastritis which is aggravating and causing nausea and vomiting. We will continue patient on some pantoprazole and Zofran. Patient was given some tramadol to try for her ankle pain. Patient will follow-up with primary care for recheck. Return to ED for new concerns. Lab Data 01/28/24 20:36 01/28/24 20:36 Radiology Impressions Chest X-Ray 01/28/24 20:28 IMPRESSION: 1. No clear-cut acute plain radiographic cardiopulmonary abnormality or interval change from 01/05/2024. 2. Stable borderline cardiac silhouette size without overt CHF. Other chronic findings detailed above. Foot X-Ray 01/28/24 20:28 IMPRESSION: No acute fracture or dislocation. Alignment deformities and mild degenerative changes detailed above. Gallbladder Ultrasound 01/28/24 21:34 IMPRESSION: No significant sonographic abnormality in the visualized abdomen. Laboratory Results WBC 7.37 10^3/uL (3.29-11.43) 01/28/24 20:36 RBC 4.68 10^6/uL (3.85-5.65) 01/28/24 20:36 Hgb 14.80 g/dL (11.27-16.99) 01/28/24 20:36 Hct 43.4 % (36-47) 01/28/24 20:36 MCV 92.7 fl (85-98) 01/28/24 20:36 MCH 31.6 pg (27-33) 01/28/24 20:36 MCHC 34.1 g/dL (30-55) 01/28/24 20:36 RDW 12.3 % (12.1-15.1) 01/28/24 20:36 Plt Count 343 10^3/cmm (157-399) 01/28/24 20:36 MPV 9.9 fL (7.4-10.4) 01/28/24 20:36 Neut % (Auto) 64.5 % 01/28/24 20:36 Lymph % (Auto) 24.3 % 01/28/24 20:36 [place] % (Auto) 9.4 % 01/28/24 20:36 Eos % (Auto) 0.8 % 01/28/24 20:36 Baso % (Auto) 0.9 % 01/28/24 20:36 Neut # (Auto) 4.75 10^3/uL (1.8-7.7) 01/28/24 20:36 Lymph # (Auto) 1.8 10^3/uL (0.8-4.8) 01/28/24 20:36 [place] # (Auto) 0.7 10^3/uL (0.2-0.9) 01/28/24 20:36 Eos # (Auto) 0.1 10^3/uL (0.0-0.8) 01/28/24 20:36 Baso # (Auto) 0.1 10^3/uL (0.0-0.1) 01/28/24 20:36 Nucleated RBC % (auto) 0 % 01/28/24 20:36 Nucleated RBCs # 0.0 /100WBC 01/28/24 20:36 ESR 12 mm/hr (0-15) 01/28/24 20:36 Sodium 132 mmol/L (136-145) L 01/28/24 20:36 Potassium 4.7 mmol/L (3.5-5.1) 01/28/24 20:36 Chloride 93 mmol/L (98-107) L 01/28/24 20:36 Carbon Dioxide 24 mmol/L (22-29) 01/28/24 20:36 Anion Gap 19.7 (5-19) H 01/28/24 20:36 BUN 12 mg/dL (8-23) 01/28/24 20:36 Creatinine 0.9 mg/dL (0.5-0.9) 01/28/24 20:36 GFR Calculation Not Reportable 01/28/24 20:36 Glucose 112 mg/dL (65-115) 01/28/24 20:36 Calculated Osmolality 275 mOsm/kg (285-295) L 01/28/24 20:36 Calcium 10.3 mg/dL (8.5-10.5) 01/28/24 20:36 Total Bilirubin 0.6 mg/dL (0.15-1.2) 01/28/24 20:36 AST 23 U/L (0-32) 01/28/24 20:36 ALT 20 U/L (0-33) 01/28/24 20:36 Alkaline Phosphatase 126 U/L (35-105) H 01/28/24 20:36 Troponin T Baseline 15 ng/L (0-10) H 01/28/24 20:36 C-Reactive Protein 5.3 mg/L (0.0-4.9) H 01/28/24 20:36 NT-Pro-B Natriuret Pep 191 pg/mL (0-125) H 01/28/24 20:36 Total Protein 7.7 g/dL (6.6-8.7) 01/28/24 20:36 Albumin 4.7 g/dL (3.5-5.2) 01/28/24 20:36 Globulin 3.0 g/dL (1.3-4.6) 01/28/24 20:36 Lipase 37 U/L (13-60) 01/28/24 20:36 TSH 0.09 uIU/mL (0.27-4.20) L 01/28/24 20:36 Urine Color Yellow (Yellow) 01/28/24 20:51 Urine Appearance Clear (CLEAR) 01/28/24 20:51 Urine pH 6 (5-7) 01/28/24 20:51 Ur Specific [place] 1.010 (1.005-1.030) 01/28/24 20:51 Urine Protein Neg (Negative) 01/28/24 20:51 Urine Glucose (UA) Norm (Normal) 01/28/24 20:51 Urine Ketones Negative (Negative) 01/28/24 20:51 Urine Blood Neg (Negative) 01/28/24 20:51 Urine Nitrate Negative (Negative) 01/28/24 20:51 Urine Bilirubin Neg (Negative) 01/28/24 20:51 Urine Urobilinogen Neg mg/dL (Negative) 01/28/24 20:51 Ur Leukocyte Esterase Negative (Negative) 01/28/24 20:51 All radiology interpretation(s) finalized by discharge EKG Data EKG 1: I personally reviewed and interpreted this EKG as follows: EKG interpretation date: 01/28/24 EKG interpretation time: 20:52 Prior EKG tracings: not available for review Interpretation: Electronic ventricular paced rhythm regular at 99 bpm. No prior exam was available for immediate comparison. Computer generated interpretation: Electronic ventricular pacemaker, abnormal rhythm EKG, compared to EKG 01/06/2024 no significant changes. 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, right ankle and foot Condition: Stable Prescriptions: New pantoprazole 20 mg tablet,delayed release (DR/EC) 20 mg PO DAILY 28 Days Qty: 30 0RF ondansetron 4 mg tablet,disintegrating 4 mg PO Q8H PRN (Reason: nausea and vomiting) Qty: 10 0RF tramadol 50 mg tablet 50 mg PO Q8H PRN (Reason: pain) Qty: 15 0RF cyclobenzaprine 5 mg tablet 5 mg PO DAILY PRN (Reason: restless leg(s)) Qty: 20 0RF No Action multivitamin Tablet 1 tab PO DAILY ascorbic acid (vitamin C) 500 mg tablet 500 mg PO DAILY cyanocobalamin (vitamin B-12) [B-12 DOTS] 500 mcg tablet 500 mcg PO DAILY Galzin 50 mg (zinc) capsule 50 mg PO DAILY Rx Instructions: swallow whole; do not chew/break/dissolve/open cholecalciferol (vitamin D3) 75 mcg (3,000 unit) tablet 75 mcg PO DAILY levothyroxine 125 mcg capsule 150 mcg PO DAILY Entresto 24-26 mg tablet 1 tab PO BID Qty: 90 0RF aspirin 81 mg Tablet,Delayed Release (Dr/Ec) 81 mg PO DAILY Qty: 90 0RF spironolactone 25 mg Tablet 25 mg PO DAILY Qty: 90 0RF atorvastatin 40 mg Tablet 40 mg PO BEDTIME Qty: 90 0RF furosemide [Lasix] 40 mg tablet 40 mg PO DAILY PRN (Reason: edema) Qty: 30 2RF Discharge Orders: Discharge ED (Routine); Ordered 01/28/24 Ordered By: Nj Calix Referrals: Nitish Amador MD [Primary Care Provider] - Discharge Diet: Usual diet Discharge Activity: Increase activity as tolerated Patient Instructions: Gastritis (ED) Activity Restrictions/Additional Instructions: Home and rest. Drink plenty of fluids. Start with clear liquids and increase to full liquids and a bland diet over the next 2 to 3 days. Use pantoprazole 20 mg daily to help with gastritis symptoms. This should help reduce the acid in the stomach which will help with pain and nausea. Follow-up with primary care in 1 week for recheck. Use tramadol as needed for arthritis pain. Use 1 tablet every 8 hours as needed for your pain. This should allow you relief in your arthritis pain. Follow-up with primary care regarding the use of the medication and other treatment options for your arthritis. Return to ER for worsening symptoms such as fever greater than 100.4, blood in vomit or stool, or new concerns. Coding Level of Care Code ED Front Elevator Operator for Mayela Childers
--- NOTE | 2024-01-28 20:35 | ECG_ITS ---
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 Measurements Intervals [place] Rate: 99 P: 51 CT: 222 QRS: -64 QRSD: 182 T: 82 QT: 387 QTc: 499 Interpretive Statements ELECTRONIC VENTRICULAR PACEMAKER ABNORMAL RHYTHM ECG Compared to ECG 01/06/2024 03:42:13 No significant changes Electronically Signed On 01-29-2024 22:19:02 CDT by Marcy Dunham M.D. [id number]
[2024-01-28 20:43] LABS: Basophils # 0.1 10^3/uL (0.0-0.1); Basophils % 0.9 %; Eosinophils # 0.1 10^3/uL (0.0-0.8); Eosinophils % 0.8 %; Hematocrit 43.4 % (36-47); Lymphocytes # 1.8 10^3/uL (0.8-4.8); Lymphocytes % 24.3 %; Mean Corpuscular HGB Conc 34.1 g/dL (30-55); Mean Corpuscular Hemoglobin 31.6 pg (27-33); Mean Corpuscular Volume 92.7 fl (85-98); Mean Platelet Volume 9.9 fL (7.4-10.4); Monocytes # 0.7 10^3/uL (0.2-0.9); Monocytes % 9.4 %; Neutrophils # 4.75 10^3/uL (1.8-7.7); Neutrophils % 64.5 %; Nucleated Red Blood Cells % 0 %; Platelet Count 343 10^3/cmm (157-399); Red Blood Count 4.68 10^6/uL (3.85-5.65); Red Cell Distribution Width 12.3 % (12.1-15.1); White Blood Count 7.37 10^3/uL (3.29-11.43)
[2024-01-28 20:58] LABS: Erythrocyte Sedimentation Rate 12 mm/hr (0-15)
[2024-01-28 21:00] VITALS: BP 131/85; PULSE 99; RESP 16; O2SAT 96
[2024-01-28 21:06] LABS: Add Urine Microscopic? NO; Charge for UA Resulting for Rev
[2024-01-28 21:10] LABS: Bilirubin Urine Neg (Negative); Blood Urine Neg (Negative); Glucose Urine UA Norm (Normal); Ketones Urine Negative (Negative); Nitrate Urine Negative (Negative); Protein Urine Neg (Negative); Urine Appearance Clear (CLEAR); Urine Color Yellow (Yellow); pH Urine 6 (5-7)
[2024-01-28 21:11] LABS: Leukocyte Esterase Urine Negative (Negative); Urobilinogen Urine Neg (Negative)
[2024-01-28 21:13] LABS: Troponin(5th) Baseline 15 ng/L (0-10)
[2024-01-28 21:24] LABS: Alanine Aminotransferase 20 U/L (0-33); Albumin Level 4.7 g/dL (3.5-5.2); Alkaline Phosphatase 126 U/L (35-105); Anion Gap 19.7 (5-19); Aspartate Amino Transferase 23 U/L (0-32); Blood Urea Nitrogen 12 mg/dL (8-23); C Reactive Protein 5.3 mg/L (0.0-4.9); Calcium 10.3 mg/dL (8.5-10.5); Carbon Dioxide 24 mmol/L (22-29); Chloride 93 mmol/L (98-107); Glucose 112 mg/dL (65-115); Lipase 37 U/L (13-60); NT Pro B Type Natriuretic Pept 191 pg/mL (0-125); Osmolality Calculated 275 mOsm/kg (285-295); Potassium 4.7 mmol/L (3.5-5.1); Sodium 132 mmol/L (136-145); Thyroid Stimulating Hormone 0.09 uIU/mL (0.27-4.20); Total Bilirubin 0.6 mg/dL (0.15-1.2); Total Protein 7.7 g/dL (6.6-8.7)
[2024-01-28 21:30] VITALS: BP 118/75; PULSE 95; RESP 16; O2SAT 97
--- NOTE | 2024-01-28 21:34 | USR_ITS ---
PROCEDURE INFORMATION: Exam: US Abdomen, Limited; Right Upper Quadrant Exam date and time: 01/28/2024 9:49 PM Age: 73 years old Clinical indication: Other: Elevated alkphos; Additional info: Nausea vomit, elevated alk phos TECHNIQUE: Imaging protocol: Real time ultrasound of the abdomen with image documentation. Limited exam focused on the right upper quadrant. COMPARISON: US pelvic complete* [id number] 04/21/2019 10:30 AM FINDINGS: Liver: No clear-cut focal or diffuse abnormality or hepatomegaly. Antegrade portal venous flow is maintained. Gallbladder: Normal. No gallstones. There is no gallbladder wall thickening. Reported negative sonographic Zepeda's sign. Biliary ducts: Normal. No stones. No dilation. CBD measures 4 mm in diameter. Pancreas: Visualized pancreas is unremarkable. Right kidney: Normal in size measuring 10.3 x 3.6 x 4.2 cm. No mass. No hydronephrosis. US/US gall bladder [id number] IMPRESSION: No significant sonographic abnormality in the visualized abdomen.
[2024-01-28 21:58] VITALS: O2SAT 98
[2024-01-28] MEDS: morphine 4 mg/mL SDV 1 mL 2 MG IVP (21:58)
[2024-01-28] MEDS: ondansetron 2 mg/ML SDV 2 mL 4 MG IVP (21:58)
[2024-01-28] MEDS: sodium chloride 0.9% 500 ML 999 ML IV (21:59)
[2024-01-28 22:00] VITALS: BP 118/75; PULSE 90; RESP 16; O2SAT 98
[2024-01-28] MEDS: pantoprazole 40 mg SDV IVP (22:48)
[2024-01-28 22:50] VITALS: BP 123/75; PULSE 87; RESP 18; O2SAT 95
== END 2024-01-28 23:00 | disposition home or self-care (01) ==
PROVIDERS: Emergency Provider Nurse Practitioner Family; PCP Family Medicine
DX: M19.071 Primary osteoarthritis, right ankle and foot (principal); K29.70 Gastritis, unspecified, without bleeding; I11.0 Hypertensive heart disease with heart failure; I50.30 Unspecified diastolic (congestive) heart failure; E03.9 Hypothyroidism, unspecified; Z79.899 Other long term (current) drug therapy; Z79.82 Long term (current) use of aspirin; Z87.891 Personal history of nicotine dependence; Z95.0 Presence of cardiac pacemaker
CPT/HCPCS: 36415; 71045; 73630; 76705; 80053; 81003; 83690; 83880; 84443; 84484; 85025; 85651; 86140; 93005; 96374; 96375; 99285; C9113; J2270; J2405; J7040

== ENCOUNTER → 2024-02-03 14:12 | Outpatient (BNVA) | payer MEDICARE, SELFPAY | PROVIDERS: PCP Family Medicine; Visit Provider Nurse Practitioner Family | DX: Z09 Encounter for follow-up examination after completed treatment for conditions other than malignant neoplasm (principal) | CPT/HCPCS: 99213 ==

== ENCOUNTER → 2024-02-18 10:16 | Outpatient (BNVA) | payer MEDICARE, SELFPAY | PROVIDERS: PCP Family Medicine; Visit Provider Nurse Practitioner Family | DX: I11.0 Hypertensive heart disease with heart failure (principal); I50.23 Acute on chronic systolic (congestive) heart failure; Z95.0 Presence of cardiac pacemaker | CPT/HCPCS: 99214 ==

== ENCOUNTER 2024-03-10 07:30 | Outpatient (CLI) | payer MEDICARE, OTHER, SELFPAY ==
--- NOTE | 2024-03-10 07:45 | USCV_ITS ---
Salena Kelly Age: 73 Gender: F : 1950 Exam Date: 03/10/2024 08:16 Ordering Phys: Orly Yanez Technologist: [place] [facility] [place]ication: ef BP: 130 / 83 HR: Rhythm: Sinus Technical Quality: Adequate MEASUREMENTS (Male / Female) Normal Values 2D ECHO LVOT Diameter 2.2 cm LV Ejection Fraction MOD 4C 46.6 % LV Ejection Fraction MOD 2C 42.4 % LV Ejection Fraction 2C AL 41.6 % LA Diameter 3.5 cm RA Systolic Volume 4C AL 30.1 ml RA Systolic Volume 4C MOD 25.6 ml LA Sys Volume AL 28.4 cm cubed LA Sys Volume Index AL 14.0 cm cubed/m squared Aorta at Sinotubular Diameter 2.3 cm M-MODE LA Ao Ratio MM 1.5 AV Cusp Separation MM 1.5 cm FINDINGS Left Ventricle Diffuse hypokinesis of the left ventricular ejection fraction of 41%.abnormal septal motion consistent with conduction abnormality. Mild concentric left ventricular hypertrophy. Right Ventricle Possibly normal size and ejection fraction Right Atrium Normal right atrial size. Left Atrium Mildly increased left atrial size. Mitral Valve No gross abnormalities noted Aortic Valve No gross abnormalities noted Tricuspid Valve No gross abnormalities noted Pulmonic Valve Pulmonic valve not well visualized. Pericardium Normal pericardium without effusion. Aorta Normal ascending aorta dimension. IVC Inferior vena cava not visualized. CONCLUSIONS Diffuse hypokinesis of the left ventricular ejection fraction of 41%.abnormal septal motion consistent with conduction abnormality. Mild concentric left ventricular hypertrophy. There is no pericardial effusion. There are no intracardiac masses. Compared to the study from 12/11/2023, there may not be a significant change Dr Marcy Dunham MD FACC (Electronically Signed) Final Date: 16 March 2024 10:12 S
== END 2024-03-10 07:31 | disposition home or self-care (01) ==
PROVIDERS: PCP Family Medicine; Visit Provider Nurse Practitioner Family
DX: I50.23 Acute on chronic systolic (congestive) heart failure (principal); R94.39 Abnormal result of other cardiovascular function study; I51.7 Cardiomegaly
CPT/HCPCS: 93308

== ENCOUNTER → 2024-03-17 10:43 | Outpatient (BNVA) | payer MEDICARE, OTHER, SELFPAY | PROVIDERS: PCP Family Medicine; Visit Provider Internal Medicine Rheumatology | DX: M15.9 Polyosteoarthritis, unspecified (principal); E06.3 Autoimmune thyroiditis | CPT/HCPCS: 99214 ==

== ENCOUNTER → 2024-04-05 15:35 | Outpatient (BNVA) | payer MEDICARE, OTHER, SELFPAY | PROVIDERS: PCP Family Medicine; Visit Provider Nurse Practitioner Family | DX: I50.42 Chronic combined systolic (congestive) and diastolic (congestive) heart failure (principal); Z95.0 Presence of cardiac pacemaker | CPT/HCPCS: 36415; 80048; 83880; 99214 ==

== ENCOUNTER 2024-06-30 12:41 | Outpatient (RCR) | payer MEDICARE, OTHER, SELFPAY | END 2024-07-13 23:59 | disposition home or self-care (01) | LOC: SPT 12:41 | PROVIDERS: Visit Provider Family Medicine | DX: M25.561 Pain in right knee (principal) | CPT/HCPCS: 97110; 97161 ==

== ENCOUNTER 2024-07-14 06:00 | Outpatient (RCR) | payer MEDICARE, OTHER, SELFPAY | END 2024-08-13 23:59 | disposition home or self-care (01) | LOC: SPT 06:00 | PROVIDERS: Visit Provider Family Medicine | DX: M25.561 Pain in right knee (principal) | CPT/HCPCS: 97110 ==

== ENCOUNTER 2024-08-14 06:00 | Outpatient (RCR) | payer MEDICARE, OTHER, SELFPAY | END 2024-09-10 23:59 | disposition home or self-care (01) | LOC: SPT 06:00 | PROVIDERS: Visit Provider Family Medicine | DX: M25.561 Pain in right knee (principal) | CPT/HCPCS: 97110 ==

== ENCOUNTER 2024-09-26 23:05 | Emergency (ER) | payer MEDICARE, OTHER, SELFPAY ==
--- NOTE | 2024-09-26 23:09 | ECG_ITS ---
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
[2024-09-26 23:11] VITALS: BP 148/88; PULSE 86; RESP 16; TEMP 36.6; O2SAT 100
--- NOTE | 2024-09-26 23:38 | XRR_ITS ---
PROCEDURE INFORMATION: Exam: XR Chest Exam date and time: 09/27/2024 12:19 AM Age: 73 years old Clinical indication: Chest pressure and chest wall pain; Prior surgery; Surgery date: 6+ months; Surgery type: Pacer; Additional info: Chest pain TECHNIQUE: Imaging protocol: Radiologic exam of the chest. Views: 1 view. COMPARISON: CR XR chest 1V portable [id number] 01/28/2024 9:42 PM FINDINGS: Tubes, catheters and devices: Dual lead electronic cardiac device projects over the left chest. Lungs: No large focal consolidation. Pleural spaces: No large pleural effusion. No distinct pneumothorax. Heart/Mediastinum: Cardiomediastinal silhouette is midline and normal in size. Bones/joints: No distinct acute osseous findings. XR/XR chest 1V portable [id number] IMPRESSION: No acute cardiopulmonary findings.
[2024-09-27 00:19] LABS: Alanine Aminotransferase 9 U/L (0-33); Albumin Level 4.3 g/dL (3.5-5.2); Alkaline Phosphatase 125 U/L (35-105); Anion Gap 14.2 (5-19); Aspartate Amino Transferase 15 U/L (0-32); Blood Urea Nitrogen 14 mg/dL (8-23); Calcium 9.9 mg/dL (8.5-10.5); Carbon Dioxide 26 mmol/L (22-29); Chloride 102 mmol/L (98-107); Creatinine Clr Calc Pharmacy 65.3639; Globulin 2.9 g/dL (1.3-4.6); Glucose 118 mg/dL (65-115); Osmolality Calculated 288 mOsm/kg (285-295); Potassium 4.2 mmol/L (3.5-5.1); Sodium 138 mmol/L (136-145); Total Bilirubin 0.3 mg/dL (0.15-1.2); Total Protein 7.2 g/dL (6.6-8.7); Troponin(5th) Baseline 11 ng/L (0-10)
--- NOTE | 2024-09-27 00:21 | W.ED.CHESTPA ---
Documented by User: MARSHALL Brady 09/27/24 00:51 HPI - Chest Pain General: Chief Complaint: Chest Pain Stated Complaint: Chest Pain Time Seen by Provider: 09/27/24 00:20 Source: patient Mode of arrival: ambulatory Limitations: no limitations History of Present Illness: Patient is a very nice 73-year-old female with a history of hypertension, thyroid disease, diastolic heart failure (last echo 02/2024 with EF 41%), pacemaker here for complaints of left-sided/substernal chest pain that began shortly after she awoke this morning. She states pain has persisted throughout the day and describes it as a dull ache. States pain radiates into her back. She feels like pain is somewhat worsened with palpation and deep inhalation. He has not had any recent illness. Patient is not having any palpitations. She denies shortness of breath or difficulty breathing. She arrives in no acute distress with stable vital signs. MD complaint: chest pain Onset (ago): hour(s) Timing of current episode: constant Onset: during rest Pain location: substernal and left chest Pain radiation: back Severity: mild Quality: dull Relieving factors: nothing Exacerbating factors: inspiration and palpation Associated symptoms: Reports no associated symptoms; Deny abdominal pain, dyspnea, fever(s), palpitations or syncope Risk Factors: Thoracic aortic dissection risk factors: none Related Data Home Medications ?Medication ?Instructions ?Recorded ?Confirmed levothyroxine 125 mcg capsule 150 mcg PO DAILY 02/09/21 04/27/24 Previous Rx's ?Medication ?Instructions ?Recorded aspirin 81 mg tablet,delayed 81 mg PO DAILY #90 tabs 01/07/24 release sacubitril 24 mg-valsartan 26 mg 1 tab PO BID #180 tabs 02/18/24 tablet (Entresto) prednisone 10 mg tablet 10 mg PO DAILY PRN for flares #30 03/17/24 tabs Allergies Allergy/AdvReac Type Severity Reaction Status Date / Time No Known Allergies Allergy Verified 09/26/24 23:14 Review of Systems Const: Denies: fever(s), chills, body aches, fatigue or malaise Card: Reports: chest pain; Denies: palpitations, irregular heart rhythm, edema, swelling of feet/ankles, lightheadedness, syncope, pre-syncope, dyspnea on exertion, orthopnea, leg pain with exertion or acrocyanosis Resp: Reports: pain on inspiration; Denies: dyspnea, productive cough, non-productive cough, change in phlegm color or chest congestion GI: Denies: abdominal pain : Denies: flank pain or dysuria Musc: Denies: neck pain Neuro: Denies: headache(s) or dizziness PFSH ED PFSH: Medical History Gorge thyroiditis Osteoarthritis, generalized Hypothyroidism Diastolic heart failure Essential hypertension Pacemaker Social History Smoking and tobacco/nicotine status: never used tobacco/nicotine Second hand smoke exposure: No Alcohol intake: never Substance/Drug Use: never Physical Exam Const: COMMON NORMALS: no acute distress, average body habitus, patient oriented x3, no limitations, healthy appearing, alert and well nourished GENERAL APPEARANCE: cooperative HENMT: COMMON NORMALS: normocephalic and atraumatic HEAD & SCALP: normal to inspection, normocephalic and atraumatic Neck/C-Spine: COMMON NORMALS: no JVD Chest: COMMONS NORMALS: normal inspection of the chest OTHER: mild pain to palpation anterior chest wall Resp: COMMON NORMALS: normal respiratory effort and clear to auscultation bilaterally AUSCULTATION: clear to auscultation bilaterally Cardio: COMMON NORMALS: no JVD, regular rate and regular rhythm RATE: regular rate RHYTHM: regular rhythm GI: COMMON NORMALS: Normal to inspection, nondistended, normoactive bowel sounds present, Soft to palpation and non-tender PALPATION: Yes Soft to palpation Extremity: COMMON NORMALS: no clubbing, cyanosis or edema, no calf tenderness and no pedal edema GENERAL: Yes normal exam except as noted Neuro: COMMON NORMALS: patient oriented x3, moves all extremities, no focal motor deficits, no sensory deficits noted and gait normal SENSORIUM/ORIENTATION: Yes alert Skin: COMMON NORMALS: no rashes or lesions noted GENERAL SKIN EXAM: no rashes or lesions noted Course Vital Signs: Vital signs: Vital Signs Temperature 97.8 F 09/26/24 23:11 Pulse Rate 70 09/27/24 02:00 Respiratory Rate 15 09/27/24 02:00 Blood Pressure 124/73 09/27/24 02:00 Pulse Oximetry 99 09/27/24 02:00 MDM - Chest Pain Lab Data 09/26/24 23:55 09/26/24 23:55 Radiology Impressions Chest X-Ray 09/26/24 23:38 IMPRESSION: No acute cardiopulmonary findings. Laboratory Results WBC 7.36 10^3/uL (3.29-11.43) 09/26/24 23:55 RBC 4.21 10^6/uL (3.85-5.65) 09/26/24 23:55 Hgb 11.70 g/dL (11.27-16.99) 09/26/24 23:55 Hct 37.8 % (36-47) 09/26/24 23:55 MCV 89.8 fl (85-98) 09/26/24 23:55 MCH 27.8 pg (27-33) 09/26/24 23:55 MCHC 31.0 g/dL (30-55) 09/26/24 23:55 RDW 14.6 % (12.1-15.1) 09/26/24 23:55 Plt Count 302 10^3/cmm (157-399) 09/26/24 23:55 MPV 9.5 fL (7.4-10.4) 09/26/24 23:55 Neut % (Auto) 53.0 % 09/26/24 23:55 Lymph % (Auto) 35.5 % 09/26/24 23:55 Wagoner % (Auto) 7.5 % 09/26/24 23:55 Eos % (Auto) 2.7 % 09/26/24 23:55 Baso % (Auto) 1.0 % 09/26/24 23:55 Neut # (Auto) 3.91 10^3/uL (1.8-7.7) 09/26/24 23:55 Lymph # (Auto) 2.6 10^3/uL (0.8-4.8) 09/26/24 23:55 Wagoner # (Auto) 0.6 10^3/uL (0.2-0.9) 09/26/24 23:55 Eos # (Auto) 0.2 10^3/uL (0.0-0.8) 09/26/24 23:55 Baso # (Auto) 0.1 10^3/uL (0.0-0.1) 09/26/24 23:55 Nucleated RBC % (auto) 0 % 09/26/24 23:55 Nucleated RBCs # 0.0 /100WBC 09/26/24 23:55 Sodium 138 mmol/L (136-145) 09/26/24 23:55 Potassium 4.2 mmol/L (3.5-5.1) 09/26/24 23:55 Chloride 102 mmol/L (98-107) 09/26/24 23:55 Carbon Dioxide 26 mmol/L (22-29) 09/26/24 23:55 Anion Gap 14.2 (5-19) 09/26/24 23:55 BUN 14 mg/dL (8-23) 09/26/24 23:55 Creatinine 0.8 mg/dL (0.5-0.9) 09/26/24 23:55 GFR Calculation Not Reportable 09/26/24 23:55 Glucose 118 mg/dL (65-115) H 09/26/24 23:55 Calculated Osmolality 288 mOsm/kg (285-295) 09/26/24 23:55 Calcium 9.9 mg/dL (8.5-10.5) 09/26/24 23:55 Total Bilirubin 0.3 mg/dL (0.15-1.2) 09/26/24 23:55 AST 15 U/L (0-32) 09/26/24 23:55 ALT 9 U/L (0-33) 09/26/24 23:55 Alkaline Phosphatase 125 U/L (35-105) H 09/26/24 23:55 Troponin T Baseline 11 ng/L (0-10) H 09/26/24 23:55 Troponin T 120 Minute 12.26 ng/L (0-10) H 09/27/24 01:32 Delta Troponin T 1.26 ABS# (0-10) 09/27/24 01:32 Total Protein 7.2 g/dL (6.6-8.7) 09/26/24 23:55 Albumin 4.3 g/dL (3.5-5.2) 09/26/24 23:55 Globulin 2.9 g/dL (1.3-4.6) 09/26/24 23:55 Discharge Plan Discharge Condition: Stable Prescriptions: No Action levothyroxine 125 mcg capsule 150 mcg PO DAILY prednisone 10 mg tablet 10 mg PO DAILY PRN (Reason: for flares) Qty: 30 0RF Entresto 24-26 mg tablet 1 tab PO BID Qty: 180 1RF Rx Instructions: 1 tab at noon, 1/2 at night aspirin 81 mg Tablet,Delayed Release (Dr/Ec) 81 mg PO DAILY Qty: 90 0RF Referrals: Nitish Amador MD [Primary Care Provider] - Print Language: Cypriot Coding Level of Care Code ED Warehouse Guard for Chg Fwd Documented by User: Niko Banuelos, 09/27/24 02:14 HPI - Chest Pain General: Chief Complaint: Chest Pain Stated Complaint: Chest Pain Time Seen by Provider: 09/27/24 00:20 Related Data Home Medications ?Medication ?Instructions ?Recorded ?Confirmed levothyroxine 125 mcg capsule 150 mcg PO DAILY 02/09/21 04/27/24 Previous Rx's ?Medication ?Instructions ?Recorded aspirin 81 mg tablet,delayed 81 mg PO DAILY #90 tabs 01/07/24 release sacubitril 24 mg-valsartan 26 mg 1 tab PO BID #180 tabs 02/18/24 tablet (Entresto) prednisone 10 mg tablet 10 mg PO DAILY PRN for flares #30 03/17/24 tabs Allergies Allergy/AdvReac Type Severity Reaction Status Date / Time No Known Allergies Allergy Verified 09/26/24 23:14 [facility] ED PFSH: Medical History Gorge thyroiditis Osteoarthritis, generalized Hypothyroidism Diastolic heart failure Essential hypertension Pacemaker Social History Smoking and tobacco/nicotine status: never used tobacco/nicotine Second hand smoke exposure: No Alcohol intake: never Substance/Drug Use: never Course Vital Signs: Vital signs: Vital Signs Temperature 97.8 F 09/26/24 23:11 Pulse Rate 70 09/27/24 02:00 Respiratory Rate 15 09/27/24 02:00 Blood Pressure 124/73 09/27/24 02:00 Pulse Oximetry 99 09/27/24 02:00 MDM - Chest Pain Medical Decision Making I assumed care of this patient from the midlevel provider. Instructions were to follow-up on a 2-hour troponin try to determine a diagnosis and disposition. 2-hour troponin came back mildly elevated patient continued to report reproducible musculoskeletal pain. I examined the patient and I palpated her chest she said that reproduce the pain she denied any symptoms such as nausea, shortness of breath, diaphoresis or other more worrisome symptoms. She has a nonspecific elevation of her troponin but I do not think she has acute coronary syndrome or pulmonary embolism or more life-threatening cause. And then let her go home with close follow-up and return precautions. I also reviewed her EKGs including a second EKG that revealed electronic ventricular pacemaker without any other significant worrisome findings. Lab Data 09/26/24 23:55 09/26/24 23:55 Radiology Impressions Chest X-Ray 09/26/24 23:38 IMPRESSION: No acute cardiopulmonary findings. Laboratory Results WBC 7.36 10^3/uL (3.29-11.43) 09/26/24 23:55 RBC 4.21 10^6/uL (3.85-5.65) 09/26/24 23:55 Hgb 11.70 g/dL (11.27-16.99) 09/26/24 23:55 Hct 37.8 % (36-47) 09/26/24 23:55 MCV 89.8 fl (85-98) 09/26/24 23:55 MCH 27.8 pg (27-33) 09/26/24 23:55 MCHC 31.0 g/dL (30-55) 09/26/24 23:55 RDW 14.6 % (12.1-15.1) 09/26/24 23:55 Plt Count 302 10^3/cmm (157-399) 09/26/24 23:55 MPV 9.5 fL (7.4-10.4) 09/26/24 23:55 Neut % (Auto) 53.0 % 09/26/24 23:55 Lymph % (Auto) 35.5 % 09/26/24 23:55 Wagoner % (Auto) 7.5 % 09/26/24 23:55 Eos % (Auto) 2.7 % 09/26/24 23:55 Baso % (Auto) 1.0 % 09/26/24 23:55 Neut # (Auto) 3.91 10^3/uL (1.8-7.7) 09/26/24 23:55 Lymph # (Auto) 2.6 10^3/uL (0.8-4.8) 09/26/24 23:55 Wagoner # (Auto) 0.6 10^3/uL (0.2-0.9) 09/26/24 23:55 Eos # (Auto) 0.2 10^3/uL (0.0-0.8) 09/26/24 23:55 Baso # (Auto) 0.1 10^3/uL (0.0-0.1) 09/26/24 23:55 Nucleated RBC % (auto) 0 % 09/26/24 23: Nucleated RBCs # 0.0 /100WBC 09/26/24 23:55 Sodium 138 mmol/L (136-145) 09/26/24 23:55 Potassium 4.2 mmol/L (3.5-5.1) 09/26/24 23:55 Chloride 102 mmol/L (98-107) 09/26/24 23:55 Carbon Dioxide 26 mmol/L (22-29) 09/26/24 23:55 Anion Gap 14.2 (5-19) 09/26/24 23:55 BUN 14 mg/dL (8-23) 09/26/24 23:55 Creatinine 0.8 mg/dL (0.5-0.9) 09/26/24 23:55 GFR Calculation Not Reportable 09/26/24 23:55 Glucose 118 mg/dL (65-115) H 09/26/24 23:55 Calculated Osmolality 288 mOsm/kg (285-295) 09/26/24 23:55 Calcium 9.9 mg/dL (8.5-10.5) 09/26/24 23:55 Total Bilirubin 0.3 mg/dL (0.15-1.2) 09/26/24 23:55 AST 15 U/L (0-32) 09/26/24 23:55 ALT 9 U/L (0-33) 09/26/24 23:55 Alkaline Phosphatase 125 U/L (35-105) H 09/26/24 23:55 Troponin T Baseline 11 ng/L (0-10) H 09/26/24 23:55 Troponin T 120 Minute 12.26 ng/L (0-10) H 09/27/24 01:32 Delta Troponin T 1.26 ABS# (0-10) 09/27/24 01:32 Total Protein 7.2 g/dL (6.6-8.7) 09/26/24 23:55 Albumin 4.3 g/dL (3.5-5.2) 09/26/24 23:55 Globulin 2.9 g/dL (1.3-4.6) 09/26/24 23:55 All radiology interpretation(s) finalized by discharge Discharge Plan Discharge Condition: Stable Prescriptions: No Action levothyroxine 125 mcg capsule 150 mcg PO DAILY prednisone 10 mg tablet 10 mg PO DAILY PRN (Reason: for flares) Qty: 30 0RF Entresto 24-26 mg tablet 1 tab PO BID Qty: 180 1RF Rx Instructions: 1 tab at noon, 1/2 at night aspirin 81 mg Tablet,Delayed Release (Dr/Ec) 81 mg PO DAILY Qty: 90 0RF Referrals: Nitish Amador MD [Primary Care Provider] - Print Language: Cypriot Coding Level of Care Code ED Warehouse Guard for Mayela Childers
[2024-09-27 00:42] VITALS: BP 134/80; PULSE 79; RESP 18; O2SAT 98
[2024-09-27 01:00] VITALS: BP 126/76; PULSE 71; RESP 20; O2SAT 97
[2024-09-27 01:06] LABS: Basophils # 0.1 10^3/uL (0.0-0.1); Eosinophils # 0.2 10^3/uL (0.0-0.8); Eosinophils % 2.7 %; Hematocrit 37.8 % (36-47); Lymphocytes # 2.6 10^3/uL (0.8-4.8); Lymphocytes % 35.5 %; Mean Corpuscular Hemoglobin 27.8 pg (27-33); Mean Corpuscular Volume 89.8 fl (85-98); Mean Platelet Volume 9.5 fL (7.4-10.4); Monocytes # 0.6 10^3/uL (0.2-0.9); Monocytes % 7.5 %; Neutrophils # 3.91 10^3/uL (1.8-7.7); Nucleated Red Blood Cells % 0 %; Platelet Count 302 10^3/cmm (157-399); Red Blood Count 4.21 10^6/uL (3.85-5.65); Red Cell Distribution Width 14.6 % (12.1-15.1); White Blood Count 7.36 10^3/uL (3.29-11.43)
[2024-09-27 01:30] VITALS: BP 132/72; PULSE 71; RESP 17; O2SAT 98
--- NOTE | 2024-09-27 01:38 | ECG_ITS ---
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
[2024-09-27 01:52] LABS: Troponin 5 2HR 12.26 ng/L (0-10); Troponin 5 2HR Delta 1.26 ABS# (0-10)
[2024-09-27 02:00] VITALS: BP 124/73; PULSE 70; RESP 15; O2SAT 99
[2024-09-27 02:23] VITALS: BP 124/73; PULSE 69; O2SAT 99
== END 2024-09-27 02:24 | disposition home or self-care (01) ==
PROVIDERS: Physician Assistant; Emergency Provider Family Medicine; PCP Family Medicine
DX: R07.9 Chest pain, unspecified (principal); Z79.82 Long term (current) use of aspirin; I11.0 Hypertensive heart disease with heart failure; I50.30 Unspecified diastolic (congestive) heart failure; Z95.0 Presence of cardiac pacemaker
CPT/HCPCS: 36415; 71045; 80053; 84484; 85025; 93005; 99285

== ENCOUNTER → 2024-10-11 13:41 | Outpatient (BNVA) | payer MEDICARE, OTHER, SELFPAY | PROVIDERS: PCP Family Medicine; Visit Provider Internal Medicine | DX: I10 Essential (primary) hypertension (principal); I50.32 Chronic diastolic (congestive) heart failure; Z95.0 Presence of cardiac pacemaker | CPT/HCPCS: 99214 ==

== ENCOUNTER 2025-01-21 09:04 | Outpatient (CLI) | payer MEDICARE, OTHER, SELFPAY ==
--- NOTE | 2025-01-21 09:15 | USCV_ITS ---
Salena Kelly Age: 74 Gender: F : 1950 Exam Date: 01/21/2025 09:52 Ordering Phys: Michael Benitez M.D ([email or web address]) Technologist: MARISA [place]am Location[place] [facility] [place]ication: SoB BP: 140 / 74 HR: 64 Rhythm: Sinus Technical Quality: Adequate MEASUREMENTS (Male / Female) Normal Values 2D ECHO LV Diastolic Diameter PLAX 5.0 cm 4.2 - 5.9 / 3.9 - 5.3 cm IVS Diastolic Thickness 1.2 cm 0.6 - 1.0 / 0.6 - 0.9 cm IVS Systolic Thickness 1.3 cm LVPW Diastolic Thickness 1.3 cm 0.6 - 1.0 / 0.6 - 0.9 cm LVPW Systolic Thickness 1.8 cm LVOT Diameter 2.0 cm LV Ejection Fraction 2D Teich 58.4 % LV Ejection Fraction MOD 4C 58.0 % LV Ejection Fraction MOD 2C 46.3 % LV Ejection Fraction 2C AL 43.3 % LA Diameter 3.6 cm RA Systolic Volume 4C AL 25.2 ml RA Systolic Volume 4C MOD 25.4 ml LA Sys Volume AL 41.2 cm cubed LA Sys Volume Index AL 20.4 cm cubed/m squared Aorta at Sinotubular Diameter 2.4 cm M-MODE LA Ao Ratio MM 1.9 AV Cusp Separation MM 1.4 cm DOPPLER AV Peak Velocity 140.0 cm/s LVOT Peak Velocity 95.0 cm/s AV Area Cont Eq vti 2.4 cm squared AV Area Cont Eq pk 2.2 cm squared MV Peak Velocity 82.0 cm/s MV Area PHT 3.5 cm squared Mitral E to A Ratio 0.8 TR Peak Velocity 136.0 cm/s TR Peak Gradient 7.4 mmHg TV Peak E Velocity 75.0 cm/s PV Peak Velocity 107.0 cm/s FINDINGS Left Ventricle Left ventricle is normal in size. LV systolic function is midly reduced with EF of 40-45%. Mild gloabl hypokinesis. Grade 1 diastolic dysfunction Right Ventricle Normal in size and function. Pacemaker lead is seen. Right Atrium Normal in size. Pacemaker lead is seen. Left Atrium Normal in size Mitral Valve Structurally normal mitral valve. Mild mitral regurgitation. Aortic Valve Structurally normal aortic valve. No significant stenosis or regurgitation. Tricuspid Valve Insufficient TR jet to calculate RVSP Pulmonic Valve Not well visualized Pericardium Normal Aorta Normal in size IVC Not well visualized CONCLUSIONS LV systolic function is mildly reduced with EF of 40-45% Grade 1 diastolic dysfunction Mild mitral regurgitation Michael Benitez MD (Electronically Signed) Final Date: 27 January 2025 10:54 S
== END 2025-01-21 09:05 | disposition home or self-care (01) ==
LOC: RAD 09:05
PROVIDERS: PCP Family Medicine; Visit Provider Internal Medicine
DX: R06.02 Shortness of breath (principal); I51.89 Other ill-defined heart diseases; R93.1 Abnormal findings on diagnostic imaging of heart and coronary circulation; Z95.0 Presence of cardiac pacemaker; I34.0 Nonrheumatic mitral (valve) insufficiency
CPT/HCPCS: 93306

== ENCOUNTER → 2025-04-13 13:45 | Outpatient (BNVA) | payer MEDICARE, OTHER, SELFPAY | PROVIDERS: PCP Family Medicine; Visit Provider Internal Medicine | DX: I11.0 Hypertensive heart disease with heart failure (principal); I50.42 Chronic combined systolic (congestive) and diastolic (congestive) heart failure; Z95.0 Presence of cardiac pacemaker | CPT/HCPCS: 99214 ==

== ENCOUNTER → 2025-07-02 12:37 | Outpatient (BNVA) | payer MEDICARE, OTHER, SELFPAY | PROVIDERS: PCP Family Medicine; Visit Provider Emergency Medicine | DX: R30.0 Dysuria (principal) | CPT/HCPCS: 81000; 87086 ==